=== PATIENT | female | born 2000 | race Caucasian/White ===

== ENCOUNTER 2023-11-13 09:19 | Emergency (ER) | payer OTHER, SELFPAY ==
[2023-11-13 09:50] VITALS: BP 97/66; PULSE 94; RESP 20; TEMP 36.9; O2SAT 98; BMI 20.6
--- NOTE | 2023-11-13 10:07 | EXP.UTC ---
Discharge Plan Referrals Follow up/Referrals: Francine Abad MD [Primary Care Provider] - See instructions Activity Restrictions/Add. Instructions Additional Instructions/Restrictions: *Monitor Temp, Over the counter Motrin or Tylenol as directed/as needed Tylenol every 4 hours and Motrin every 6 hours (as long as your family doctor has told you that you can take it) for fever or pain. and straight to ER if unable to lower temp less than 101.0 after medication given *Warm salt water gargles may help to soothe the throat *Throat Lozenges? *Warm fluids like tea with honey may help to soothe the throat? *Sleep elevated *Humidifier/Vaporizer Follow up IMMEDIATELY for new or worsening symptoms or no Noticeable improvement over the next 48-72 hours. 911 for difficulty breathing or swallowing You were tested for today for COVID19 your test result should be back in the next 24 hours, you may check your results on the [facility] Clinical Impressions Clinical Impression: Viral syndrome Stand Alone Forms Stand Alone Forms: Work/School Release Instructions Patient Instructions: DI for Viral Syndrome, DI for COVID-19 (Suspected or Confirmed ) Print Language Print Language: Tamazight Discharge ED Provider: Kelly Jorge [facility] General Stated complaint: @ home Covid +, cough, fever, vomiting Mode of Arrival: Ambulatory Source of Information: Patient Time Seen by Provider: 11/13/23 10:07 Description of Symptoms (Recalled from Triage Doc. by RN): WANTS COVID TEST. POST COVID AT [facility] HEENT Symptoms (Recalled from RN notes): No Resp Symptoms (Recalled from RN notes): Yes Skin Symptoms (Recalled from RN notes): No MS Symptoms (Recalled from RN notes): No Functional Status (Recalled from RN notes): WNL History of Present Illness Provider Complaint: Patient states that she had a positive home COVID test and her work wanted her to come in and get an official test States that she has been having body aches, chills, nasal congestion and fever Related Data Allergies Allergy/AdvReac Type Severity Reaction Status Date / Time No Known Allergies Allergy Verified 11/13/23 09:52 Worker's Comp Is this a Worker's Comp case?: No [facility] Disclaimer: The information contained in this section may have been updated after the patient was seen, as this information can be updated by other users. Medical History (Updated 11/13/23 @ 10:10 by Kelly Jorge APRN) Depressed Anxiety Social History Smoking Status: Unknown if ever smoked alcohol intake: never current occupational status: employed Travel in the last 8 weeks: None ROS Obtained: Yes All systems reviewed & no additional complaints except as documented and Yes Systems reviewed as appropriate & no additional complaints except as documented Constitutional Constitutional: Reports system reviewed and no additional complaints, except as documented, Reports as per HPI, Reports body ache, Reports chills, Reports fever(s) and Reports headache(s) ENT Ears, Nose, Mouth, and Throat: Reports system reviewed and no additional complaints, except as documented, Reports as per HPI, Reports headache(s), Reports nasal congestion and Reports nasal discharge Cardiovascular Cardiovascular: Reports system reviewed and no additional complaints, except as documented and Reports as per HPI Respiratory Respiratory: Reports system reviewed and no additional complaints, except as documented and Reports as per HPI Gastrointestinal Gastrointestingal: Reports system reviewed and no additional complaints, except as documented and as per HPI Neurologic Neurologic: Reports headache(s) Physical Exam General General appearance: alert and in no apparent distress ENT ENT exam: Present mucous membranes moist Respiratory Respiratory exam: Present normal lung sounds bilaterally; Absent respiratory distress or wheezes Cardiovascular Cardiovascular exam: Present regular rate, normal rhythm and normal heart sounds Abdominal Exam Abdominal exam: Present soft and normal bowel sounds; Absent distention or tenderness Neurological Exam Neurological exam: Present alert, oriented X3 and normal gait Medical Decision Making Medical Records Screening: Per USPSTF and CDC recommendations, given the prevalence of disease in our region, it is our hospital?s policy to screen for HIV and viral Hepatitis for all patients aged 18 and over and those with ongoing risk factors. Dayron Inquiry Pt receiving controlled substance: No Dayron was queried for this patient: No Vital Signs: 11/13/23 09:50 Temperature 98.4 F Temperature Source Oral Pulse Rate [Left Brachial] 94 H Respiratory Rate 20 Blood Pressure [Left Arm] 97/66 L Blood Pressure Mean [Left Arm] 76 02 Sat by Pulse Oximetry 98 Orders (Tests/Meds): ORDERS Category Date Time Status Covid-19 Nasal PCR (H) Routine Lab 11/13/23 09:45 Received
[2023-11-13 10:13] VITALS: BP 97/66; PULSE 94; RESP 20; TEMP 36.9
== END 2023-11-13 10:17 | disposition home or self-care (01) ==
PROVIDERS: Emergency Provider Nurse Practitioner; PCP Family Medicine
DX: U07.1 COVID-19 (principal); R50.9 Fever, unspecified; R09.81 Nasal congestion
CPT/HCPCS: 87635; 99203; 99212; G0463

== ENCOUNTER 2023-11-14 14:17 | Outpatient (CLI) | payer OTHER, SELFPAY ==
[2023-11-14 13:39] LABS: Adenovirus,PCR Not Detected (NotDetected); Bordetella Pertussis Not Detected (NotDetected); Chlamydophila Pneumoniae, PCR Not Detected (NotDetected); Coronavirus 229E Not Detected (NotDetected); Coronavirus NL63 Not Detected (NotDetected); Coronavirus OC43 Not Detected (NotDetected); Coronovirus HKU1,PCR Not Detected (NotDetected); Human Metapneumovirus Not Detected (NotDetected); Influenza A, PCR Not Detected (NotDetected); Influenza AH1, 2009 Not Detected (NotDetected); Influenza AH1, PCR Not Detected (NotDetected); Influenza AH3,PCR Not Detected (NotDetected); Influenza B, PCR Not Detected (NotDetected); Mycoplasma Pneumoniae, PCR Not Detected (NotDetected); Parainfluenza 1, PCR Not Detected (NotDetected); Parainfluenza 2, PCR Not Detected (NotDetected); Parainfluenza 3, PCR Not Detected (NotDetected); Parainfluenza 4, PCR Not Detected (NotDetected); Respiratory Syncytial Virus Not Detected (NotDetected); Rhinovirus/Enterovirus Not Detected (NotDetected)
[2023-11-14 23:45] LABS: Coronavirus 19, PCR Detected (NotDetected)
== END 2023-11-14 23:59 | disposition home or self-care (01) ==
LOC: LAB.DROPOF 14:18
PROVIDERS: PCP Nurse Practitioner Family; Visit Provider Nurse Practitioner Family
DX: R05.9 Cough, unspecified (principal); R07.89 Other chest pain; R06.02 Shortness of breath; R19.7 Diarrhea, unspecified; R11.10 Vomiting, unspecified; R50.9 Fever, unspecified
CPT/HCPCS: 87265; 87486; 87581; 87632; 87635

== ENCOUNTER 2024-01-14 12:18 | Outpatient (CLI) | payer OTHER, SELFPAY ==
[2024-01-14 12:22] LABS: Basophils # 0.1 K/mm3 (0-0.2); Basophils % 0.8 % (0.1-2.0); Eosinophils # 0.4 K/mm3 (0.0-0.4); Eosinophils % 6.1 % (0.1-12.0); Hematocrit 40.5 % (37.0-47.0); Lymphocytes # 2.1 K/mm3 (0.7-4.5); Lymphocytes % 34.6 % (10-50); Mean Corpuscular HGB Conc 34.5 g/dL (31.8-35.4); Mean Corpuscular Hemoglobin 30.8 pg (27.0-31.2); Mean Corpuscular Volume 89.5 fl (81-99); Mean Platelet Volume 7.9 fl (7.4-10.4); Monocytes # 0.3 K/mm3 (0.1-1.0); Monocytes % 4.9 % (1.7-9.3); Neutrophils # 3.3 K/mm3 (1.8-7.8); Neutrophils % 53.6 % (37.0-80.0); Platelet Count 309 K/mm3 (142-424); Red Blood Count 4.53 M/mm3 (4.20-5.40); Red Cell Distribution Width 13.7 % (11.5-17.5); White Blood Count 6.1 K/mm3 (4.8-10.8)
[2024-01-14 12:39] LABS: Alanine Aminotransferase 12 U/L (12-78); Albumin Level 4.4 g/dl (3.5-5.0); Albumin/Globulin Ratio 1.6 (1.1-1.8); Alkaline Phosphatase 83 U/L (38-126); Anion Gap 15.4 mEq/L (5-15); Aspartate Amino Transferase 19 U/L (14-36); Bilirubin,Total 1.2 mg/dl (0.2-1.3); Blood Urea Nitrogen 14 mg/dl (7-17); Calcium 9.2 mg/dl (8.4-10.2); Carbon Dioxide 22 mmol/L (22.0-30.0); Chloride 106 mmol/L (98-107); Estimated Glomerular Filt Rate 102 ml/min (>60); GFR (African American) 123 ML/MIN (>60); Globulin 2.8 g/dL (1.3-3.2); Glucose 70 mg/dl (74-100); Potassium 4.4 mmoL/L (3.5-5.1); Sodium 139 mmol/L (136-145); Total Protein,Serum 7.2 g/dl (6.3-8.2); Uric Acid 3.4 mg/dl (2.5-6.2)
[2024-01-14 12:55] LABS: 25-OH Vitamin D, Total 25.6 ng/mL (30-100)
[2024-01-14 12:56] LABS: T4 (Thyroxine) 13.1 ug/dl (5.53-11.0)
[2024-01-14 12:57] LABS: Free T4 (Free Thyroxine) 1.29 ng/dl (0.78-2.19)
[2024-01-14 13:10] LABS: Thyroid Stimulating Hormone 1.27 uIU/mL (0.465-4.68)
[2024-01-14 13:29] LABS: Vitamin B12 415 pg/mL (239-931)
[2024-01-14 13:55] LABS: Ferritin 23.6 ng/ml (6.24-137)
[2024-01-14 14:42] LABS: Erythrocyte Sedimentation Rate 40 mm/hr (0-20)
[2024-01-15 11:15] LABS: Thyroid Peroxidase Antibodies 91 IU/mL (0-34)
[2024-01-15 12:20] LABS: RA Latex Turbid. <10.0 IU/mL (<14.0)
[2024-01-15 14:13] LABS: Thyroglobulin Level 1.2 IU/mL (0.0-0.9)
[2024-01-22 10:07] LABS: Antinuclear Antibodies, IFA POSITIVE
== END 2024-01-14 23:59 | disposition home or self-care (01) ==
LOC: LAB.DROPOF 12:18
PROVIDERS: PCP Nurse Practitioner Family; Visit Provider Nurse Practitioner Family
DX: R53.83 Other fatigue (principal); R63.0 Anorexia; E55.9 Vitamin D deficiency, unspecified; M79.7 Fibromyalgia; L40.9 Psoriasis, unspecified
CPT/HCPCS: 80050; 80053; 82306; 82607; 82728; 84436; 84439; 84443; 84550; 85025; 85651; 86038; 86376; 86431; 86800

== ENCOUNTER 2024-07-31 07:05 | Outpatient (CLI) | payer OTHER, SELFPAY ==
[2024-07-31 08:12] LABS: HCG,Quantitative 433 mIU/ml (0-5.42)
[2024-08-01 08:16] LABS: Progesterone 16.7 ng/mL (.)
== END 2024-07-31 23:59 | disposition home or self-care (01) ==
LOC: LAB 07:07
PROVIDERS: PCP Nurse Practitioner Family; Visit Provider Obstetrics & Gynecology
DX: Z32.01 Encounter for pregnancy test, result positive (principal)
CPT/HCPCS: 36415; 84144; 84702

== ENCOUNTER 2024-08-06 07:10 | Outpatient (CLI) | payer OTHER, SELFPAY ==
[2024-08-06 08:44] LABS: HCG,Quantitative 6396 mIU/ml (0-5.42)
== END 2024-08-06 23:59 | disposition home or self-care (01) ==
LOC: LAB 07:10
PROVIDERS: PCP Nurse Practitioner Family; Visit Provider Obstetrics & Gynecology
DX: Z34.01 Encounter for supervision of normal first pregnancy, first trimester (principal)
CPT/HCPCS: 36415; 84702

== ENCOUNTER 2024-08-24 16:15 | Outpatient (CLI) | payer OTHER, SELFPAY ==
[2024-08-24 16:44] LABS: Basophils % 0.2 % (0.1-2.0); Eosinophils # 0.1 Kmm3 (0.0-0.4); Hemoglobin 12.3 g/dL (12.2-16.2); Immature Granulocytes # 0.03 10^3uL; Immature Granulocytes % 0.3 %; Lymphocytes # 1.8 K/mm3 (0.7-4.5); Lymphocytes % 18.8 % (10-50); Mean Corpuscular HGB Conc 33.2 g/dL (31.8-35.4); Mean Corpuscular Volume 90.2 fl (81-99); Mean Platelet Volume 9.6 fl (7.4-10.4); Monocytes # 0.5 K/mm3 (0.1-1.0); Monocytes % 5.4 % (1.7-9.3); Neutrophils # 6.9 K/mm3 (1.8-7.8); Neutrophils % 74.3 % (37.0-80.0); Nucleated Red Blood Cells # 0 10^3/uL; Nucleated Red Blood Cells % 0 %; Platelet Count 243 K/mm3 (142-424); Red Cell Distribution Width 11.9 % (11.5-17.5); Red Cell Distribution Width-SD 38.8 fL; White Blood Count 9.3 K/mm3 (4.8-10.8)
[2024-08-24 17:42] LABS: Thyroid Stimulating Hormone 0.22 uIU/mL (0.465-4.68)
[2024-08-24 17:51] LABS: HIV Combo NEGATIVE (Negative)
[2024-08-24 17:57] LABS: Hepatitis C Ab Qual. W/ RFX NEGATIVE (Negative)
[2024-08-25 05:21] LABS: Hepatitis B Surface Antigen Negative (Negative)
[2024-08-25 06:37] LABS: Rubella Antibodies, IgG 3.12 index (Immune >0.99)
[2024-08-25 15:06] LABS: RPR W/RFX Titers Nonreactive (Nonreactive)
== END 2024-08-24 23:59 | disposition home or self-care (01) ==
LOC: LAB 16:16
PROVIDERS: PCP Nurse Practitioner Family; Visit Provider Obstetrics & Gynecology
DX: Z34.01 Encounter for supervision of normal first pregnancy, first trimester (principal)
CPT/HCPCS: 36415; 84443; 85025; 86592; 86762; 86803; 86850; 87340; 87389

== ENCOUNTER 2024-10-05 16:00 | Outpatient (CLI) | payer OTHER, SELFPAY ==
--- OUTSIDE RECORDS SUMMARY | 2024-08-27 14:15 | XMS_ITS | Encounter Summary ---
[facility] [address] [place] [address] Care Team Providers Care Lens Mounter Name Role Phone Francine Abad Primary Care Provider [phone] Reason for Visit * Reason Comments Follow-up On bloodwork Encounter Details Date Type Department Care Team (Late st Contact Info) Description 08/27/2024 2:15 PM EDT Office Visit [facility] [address] [id number] Chetan Pozo MD [address] [id number] Multiple joint pain (Primary Dx); Fibromyalgia; Positive GRICELDA (antinuclear antibody); Psoriasis; Chronic fatigue Social History Tobacco Use Types Packs/Day Years Used Date Smoking Tobacco: Former Cigarettes 0.1 2 2 017 - 2018 Passive Smoke Exposure: Past Smokeless Tobacco: Never Comments:Vape Alcohol Use Standard Drinks/Week Comments Not Currently 2 (1 standard drink = 0.6 oz pur e alcohol) [facility] Utilities Answer Date Recorded In the past 12 months has e electric, gas, oil, or water company threatened to shut off services in your home? No 07/28/2023 AUDIT-C Answer Date Recorded Q1: How often do you have a drink containing alcohol? Never 07/28/2023 Q2: How many drinks containi ng alcohol do you have on a typical day when you are drinking? Patient does not drink Q3: How often do you have si x or more drinks on one occasion? Never 07/28/2023 Overall Financial Resource Strain (CARDIA) Answe r Date Recorded How hard is it for you to pa y for the very basics like food, housing, medical care, and heating? Not hard at all 07/28/2023 PHQ-2 Answer Date Recorded Retired PHQ-9: Brief Depression Severity Measure Score 0 09/28/2022 [facility] - Occupational Stress Questionnaire Answer Date Recorded Do you feel stress - tense, restless, nervous, or anxious, or unable to sleep at night because your mind is troubled all the time - these days? Only a little 07/28/2023 Exercise Vital Sign Answer Date Recorde d On average, how many days pe r week do you engage in moderate to strenuous exercise (like a brisk walk)? 0 days 07/28/2023 On average, how many minutes do you engage in exercise at this level? 0 min 07/28/2023 Hunger Vital Sign Answer Date Recorded Within the past 12 months, y ou worried that your food would run out before you got the money to buy more. Never true 07/28/19 24 Within the past 12 months, t he food you bought just didn't last and you didn't have money to get more. Never true 07/28/2023 PRAPARE - Transportation Answer Date Re corded In the past 12 months, has l ack of transportation kept you from medical appointments or from getting medications? No 03/2023 In the past 12 months, has l ack of transportation kept you from meetings, work, or from getting things needed for daily living? No 07/28/2023 [place] Depression Scale Answer Date Recorded Retired [place] Depression Score 5 09/10/2023 Retired EPD Scale: Thought of Harming Self Unrec ognized value 09/10/2023 Abuse Screen Answer Date Recorded Feels Unsafe at Home or Work/School no 07/28/2023 Feels Threatened by Someone no 03/2023 Does Anyone Try to Keep You From Having Contact with Others or Doing Things Outside Your Home? no 07/28/2023 Physical Signs of Abuse Present no 07/28/2023 Housing Stability Answer Date Recorded Current Living Arrangements home 03/2023 Potentially Unsafe Housing Conditions none 07/28/2023 Family and Community Support Answer Rivera e Recorded If for any reason you need h elp with day-to-day activities such as bathing, preparing meals, shopping, managing finances, etc., do you get the help you need? I don't need any help 07/28/2023 How often do you feel lonely or isolated from those around you? Never 07/28/2023 Employment Answer Date Recorded Do you want help finding or keeping work or a job? I do not need or want help 07/28/2023 Disabilities Answer Date Recorded Difficulty Concentrating, Remembering or Making Decisions no 07/28/2023 Difficulty Managing Errands Independently no 07/28/2023 Education Answer Date Recorded Do you want help with school or training? For example, starting or completing job training or getting a high school diploma, GED or equivalent No 07/28/2023 Preferred Language Iranian 07/28/2023 PHQ-2 Answer Date Recorded Retired PHQ-9: Brief Depression Severity Measure Score 0 07/28/2023 Comments No Sex and Gender Information Value Date Recorded Sex Assigned at Female 11/09/2019 11:08 AM EDT Legal Sex Female 11:24 AM EDT Gender Identity Female 11/09/2019 11:08 AM EDT Sexual Orientation Straight 04/06/2024 8: 44 AM EST documented as of this encounter Last Filed Vital Signs Vital Sign Reading Time Taken Comments Blood Pressure 100/60 08/27/2024 2:10 PM EDT Pulse 99 08/27/2024 2:10 PM EDT Temperature 36.7 C (98 F) 08/27/2024 2:10 PM EDT Respiratory Rate - - Oxygen Saturation - - Inhaled Oxygen Concentration - - Weight 55.5 kg (122 lb 4.8 oz) 08/27/2024 2:10 P M EDT Height 167.6 cm (5' 5.98 ) 08/27/2024 2:10 PM ED T Body Mass Index 19.75 08/27/2024 2:10 PM EDT documented in this encounter Progress Notes * Chetan Pozo MD - 08/27/2024 2:15 PM EDTAssociated Problem(s): Chronic fatigue This is a longstanding problem. * Chtean Pozo MD - 08/27/2024 2:15 PM EDTAssociated Problem(s): Fibromyalgia Diagnosed at age 13. This seems to be an accurate diagnosis. Normal CPK. This can be managed by her primary care provider. * Chetan Pozo MD - 08/27/2024 2:15 PM EDTAssociated Problem(s): Multiple joint pain Onset as a teenager. Associated with diffuse body pain. Joints feel swollen but no visible joint swelling. GRICELDA 1: 160 mid body. CBC normal. History of Reina's thyroiditis per patient. History of fibromyalgia per patient. 04/21 CMP normal. CRP normal. Sed rate very elevated at 115. Complement levels normal. HLA-B27 negative. Double-stranded DNA negative. Rheumatoid factor negative. CCP negative. CK normal. ANTONINO panel negative. X-rays normal. History, laboratory, and exam would not be suspicious for psoriatic arthritis or systemic lupus. GRICELDA positivity could be associated with her thyroid antibodies. X-ray showed no evidence of inflammatory disease. Labs were unremarkable and showed no evidence of chronic inflammation or lupus findings. She was not fit diagnostic criteria for lupus or similar illness. She has no exam evidence of psoriatic arthritis. Her findings would be consistent with fibromyalgia. We reviewed the labs at length. Fibromyalgia can be managed by her primary care provider. We discussed the meaning of a positive GRICELDA, psoriatic arthritis, and fibromyalgia at length. I can see her on an as needed only basis. * Chetan Pozo MD - 08/27/2024 2:15 PM EDTAssociated Problem(s): Positive GRICELDA (antinuclear antibody) 1: 160 mid body. See above. No evidence of associated disease other than Reina's thyroiditis. * Chetan Pozo MD - 08/27/2024 2:15 PM EDTAssociated Problem(s): Psoriasis Primarily on the scalp with mild lesions otherwise. At this time, she does not have evidence of psoriatic arthritis. * Chetan Pozo MD - 08/27/2024 2:15 PM EDT Images from the original note were not included. Office Visit Date: 08/27/2024 Patient Name: Kirstin Carney Date of : 2000 Referring Physician: No ref. provider found Chief Complaint: Abnormal blood work History of Present Illness: Kirstin Carney is a 23 y.o. female who is here today in follow-upfor positive GRICELDA, diffuse pain, and psoriasis. The patient has longstanding pain for well over 10 years. The pain is diffuse throughout her body. She has severe tenderness even with light touch. She was previously diagnosed with fibromyalgia at age 13. She is 8 weeks and feels poorly. She has severe fatigue and morning sickness. Her joints are stable. Still with FMS symptoms. Seeing her inclusion teacher next week. No joint swelling. Her worst areas are her hips, knees, and hands. There is no description of fusiform swelling. She has no history of dactylitis or symptoms of enthesitis. She feels stiff all over . She has 1 hour of morning stiffness. Pain does not keep her awake at night. Her activities of dailyliving are fairly good. Sleep is very poor. Her energy is poor. She has frequent headaches. She is troubled with anxiety and depression. She has no specific bowel complaints. She has longstanding scalp psoriasis. Stable. She was also found to have positive TPO antibodies and she has been told that she has Reina's thyroiditis. She has no history of alopecia. She has no history of malar rash. She has no history of photosensitivity. She has had no oral or nasal ulcers. There is no history consistent with Raynaud's phenomenon. She has had no unexplained fevers. There is no history of serositis. She has no history of blood clots, seizures, or miscarriages. She has had no renal or hematologic abnormalities. She does have a family history of Reina's disease and her mother. She was on Cymbalta in the past for fibromyalgia. She thinks this was effective. She is currently on Zoloft. Subjective Review of Systems: Review of Systems Constitutional: Positive for appetite change, fatigue and unexpected weight loss. HENT: Positive for trouble swallowing. Cardiovascular: Positive for palpitations. Gastrointestinal: Positive for nausea. Genitourinary: Positive for decreased libido. Musculoskeletal: Positive for arthralgias, back pain, gait problem, joint swelling and myalgias. Skin: Positive for bruise. Allergic/Immunologic: Positive for environmental allergies. Neurological: Positive for tremors and headache. Hematological: Bruises/bleeds easily. Psychiatric/Behavioral: Positive for decreased concentration. The patient is nervous/anxious. Past Medical History: Past Medical History: Diagnosis Date ADHD (attention deficit hyperactivity disorder) 2021 Anemia Anxiety and depression 2014 Fibromyalgia 2017 Better by 2018 Headache Nightmares 2014 Better with treatment of depression Psoriasis of scalp 2004 Syphilis 2019 Vitamin D deficiency 12/2023 Past Surgical History: Past Surgical History: Procedure Laterality Date ADENOIDECTOMY 2006 CHOLECYSTECTOMY Dec 2016 CHOLECYSTECTOMY WITH INTRAOPERATIVE CHOLANGIOGRAM N/A 01/23/2016 Procedure: CHOLECYSTECTOMY LAPAROSCOPIC INTRAOPERATIVE CHOLANGIOGRAM; Surgeon: Shay Carlton MD; Location: [facility] OR; Service: FACIAL RECONSTRUCTION SURGERY 2001 Related to dog bite FACIAL RECONSTRUCTION SURGERY 2002 Related to shattered glass LIPOMA EXCISION 2020 From back TONSILLECTOMY AND ADENOIDECTOMY 2006 WISDOM TOOTH EXTRACTION 2016 Family History: Family History Problem Relation Age of Onset Other (pre diabetes) Mother Arthritis Mother Reina's thyroiditis Mother Thyroid disease Mother Hypertension Father Gout Father Other (pre diabetes) Father Reina's thyroiditis Sister Asthma Sister Thyroid disease Maternal Grandmother Thyroid disease Sister Social History: Social History Socioeconomic History Marital status: Spouse name: malika Tobacco Use Smoking status: Former Current packs/day: 0.00 Average packs/day: 0.1 packs/day for 2.0 years (0.2 ttl pk-yrs) Types: Cigarettes Start date: 2016 Quit date: 2018 Years since quittin.5 Passive exposure: Past Smokeless tobacco: Never Tobacco comments: Vape Vaping Use Vaping status: Former Substances: Nicotine Devices: Disposable, Pre-filled or refillable cartridge, Pre-filled pod Substance and Sexual Activity Alcohol use: Not Currently Alcohol/week: 2.0 standard drinks of alcohol Types: 1 Glasses of wine, 1 Cans of beer per week Drug use: No Sexual activity: Defer Partners: Male Medications: Current Outpatient Medications: ondansetron ODT (ZOFRAN-ODT) 4 MG disintegrating tablet, DISSOLVE ONE TABLET UNDER THE TONGUE EVERY6 HOURS, Disp: , Rfl: promethazine (PHENERGAN) 12.5 MG tablet, Take 1 tablet by mouth Every 6 (Six) Hours As Needed for Nausea or Vomiting., Disp: , Rfl: etonogestrel-ethinyl estradiol (NuvaRing) 0.12-0.015 MG/24HR vaginal ring, Insert 1 each into the vagina Every 28 (Twenty-Eight) Days. Insert vaginally and leave in place for 3 consecutive weeks, then remove for 1 week., Disp: 3 each, Rfl: 4 sertraline (ZOLOFT) 25 MG tablet, Take 1 tablet by mouth Daily., Disp: , Rfl: triamcinolone (KENALOG) 0.1 % cream, APPLY TOPICALLY TO AFFECTED AREA THREE TIMES DAILY FOR 14 DAYS, Disp: , Rfl: Allergies: No Known Allergies I have reviewed and updated the patient's chief complaint, history of present illness, review of systems, past medical history, surgical history, family history, social history, medications and allergy list as appropriate. Objective Vital Signs: Vitals: 08/27/24 1410 BP: 100/60 BP Location: Right arm Patient Position: Sitting Cuff Size: Adult Pulse: 99 Temp: 98 ??F (36.7 ??C) TempSrc: Temporal Weight: 55.5 kg (122 lb 4.8 oz) Height: 167.6 cm (65.98 ) PainSc: 3 PainLoc: Knee Body mass index is 19.75 kg/m??. Physical Exam: General: The patient is well-developed and well nourished. Cooperative, alert and oriented x3. Affect is normal. Hydration appears normal. HEENT: Normocephalic and atraumatic. No notable alopecia. Lids and conjunctiva are normal. Pupils are equal and sclera are clear. Oropharynx is clear NECK: Supple without adenopathy, masses or thyromegaly. CARDIOVASCULAR: Regular rate and rhythm. No murmurs, rubs or gallops LUNGS: Effort is normal. Lungs are clear bilaterally. ABDOMEN: Soft and non-tender without masses or hepatosplenomegaly.. EXTREMITIES: No edema. No cyanosis or clubbing. SKIN: There is scalp psoriasis. Multiple acneiform lesions are present on the face. I see no nail pits. There are no nodules. No other rashes are present. NEUROLOGIC: Gait is normal. MUSCULOSKELETAL: Complete joint exam was performed. There was full range of motion of the shoulders, elbows, wrists and hands without soft tissue swelling synovitis or deformities except as noted. Hips have good flexion and internal and external rotation. Knees have no palpable effusions. There is full extension and flexion. Ankles have no soft tissue swelling or synovitis. BACK: Straight without scoliosis. 1718 classic fibromyalgia tender points are present. Assessment / Plan Assessment & Plan Multiple joint pain Onset as a teenager. Associated with diffuse body pain. Joints feel swollen but no visible joint swelling. GRICELDA 1: 160 mid body. CBC normal. History of Reina's thyroiditis per patient. History of fibromyalgia per patient. 04/21 CMP normal. CRP normal. Sed rate very elevated at 115. Complement levels normal. HLA-B27 negative. Double-stranded DNA negative. Rheumatoid factor negative. CCP negative. CK normal. ANTONINO panel negative. X-rays normal. History, laboratory, and exam would not be suspicious for psoriatic arthritis or systemic lupus. GRICELDA positivity could be associated with her thyroid antibodies. X-ray showed no evidence of inflammatory disease. Labs were unremarkable and showed no evidence of chronic inflammation or lupus findings. She was not fit diagnostic criteria for lupus or similar illness. She has no exam evidence of psoriatic arthritis. Her findings would be consistent with fibromyalgia. We reviewed the labs at length. Fibromyalgia can be managed by her primary care provider. We discussed the meaning of a positive GRICELDA, psoriatic arthritis, and fibromyalgia at length. I can see her on an as needed only basis. Fibromyalgia Diagnosed at age 13. This seems to be an accurate diagnosis. Normal CPK. This can be managed by her primary care provider. Positive GRICELDA (antinuclear antibody) 1: 160 mid body. See above. No evidence of associated disease other than Reina's thyroiditis. Psoriasis Primarily on the scalp with mild lesions otherwise. At this time, she does not have evidence of psoriatic arthritis. Chronic fatigue This is a longstanding problem. Follow Up: Return if symptoms worsen or fail to improve. Chetan Pozo MD [facility] [place] * Chetan Pozo MD - 08/24/2024 12:47 PM EDTAssociated Problem(s): Iron deficiency anemia Likely due to prior . Rechecking today for improvement. documented in this encounter Plan of Treatment Not on file documented as of this encounter Visit Diagnoses Diagnosis Multiple joint pain- Primary Pain in joint, multiple sites Fibromyalgia Unspecified myalgia and myositis Positive GRICELDA (antinuclear antibody) Other and unspecified nonspecific immunological findings Psoriasis Other psoriasis Chronic fatigue Other malaise and fatigue documented in this encounter Care Teams Lens Mounter Relationship Specialty Start Date End Date Francine Abad DO [address] [place] [address] PCP - General Family Medicine 03/08/17 documented as of this encounter
--- OUTSIDE RECORDS SUMMARY | 2024-08-31 11:00 | XMS_ITS | Encounter Summary ---
[facility] [address] [place] [address] Care Team Providers Care Pharmacy District Manager Name Role Phone Francine Abad Primary Care Provider [phone] Reason for Visit * Reason Comments Thyroid Problem Pt is 8 weeks pregna nt Encounter Details Date Type Department Care Team (Late st Contact Info) Description 08/31/2024 11:00 AM EDT Office Visit [facility] ENDOCRINOLOGY [address] [place] [phone] Kelly Vidal PA-C [address] [place], [place] [id number] Thyroid disease during in first trimester (Primary Dx); Anti-TPO antibodies present Social History Tobacco Use Types Packs/Day Years Used Date Smoking Tobacco: Former Cigarettes 0.1 2 2 017 - 2019 Passive Smoke Exposure: Past Smokeless Tobacco: Never Comments:Vape Alcohol Use Standard Drinks/Week Comments Not Currently 2 (1 standard drink = 0.6 oz pur e alcohol) [facility] Utilities Answer Date Recorded In the [...] Brief Depression Severity Measure Score 0 09/28/2022 [facility] - Occupational Stress Questionnaire Answer Date [...] things needed for daily living? No 07/28/2023 [place] Depression Scale Answer Date Recorded Retired [place] Depression Score 5 09/10/2023 Retired EPD Scale: [...] GED or equivalent No 07/28/2023 Preferred Language Japanese 07/28/2023 PHQ-2 Answer Date Recorded Retired PHQ-9: [...] Reading Time Taken Comments Blood Pressure 100/60 08/31/2024 11:08 AM EDT Pulse 98 08/31/2024 11:08 AM EDT Temperature - - Respiratory Rate - - Oxygen Saturation - - Inhaled Oxygen Concentration - - Weight 56.7 kg (125 lb) 08/31/2024 11:08 AM EDT Height 167.6 cm (5' 5.98 ) 08/31/2024 11:08 AM E DT Body Mass Index 20.19 08/31/2024 11:08 AM EDT documented in this encounter Progress Notes * Kelly Vidal PA-C - 09/01/2024 6:16 AM EDTAssociated Problem(s): Thyroid disease during in first trimester Hx positive TPO antibodies with normal thyroid function tests in past. Recent mild low TSH 0.22; within normal reference range for . Discussed low TSH common due to hcg in first trimester Ddx: gestational transient thyrotoxicosis, autoimmune hyperthyroidism/Grave's disease. Advised repeat labs with TSH, FT4, thyrotropin receptor ab; plans to repeat next week. Discussed risk for development of thyroid disease given hx positive TPO antibodies and continue monitoring TSH in each trimester/4-6 weeks. Discussed propranolol may help with symptomatic relief; declines medication management at this time. Would avoid PTU use for now given low-normal TSH and if FT4 at or slightly above normal. Encouraged hydration, electrolyte replacement, vitamin containing folic acid/iron. * Kelly Vidal PA-C - 08/31/2024 11:00 AM EDT Chief Complaint Patient presents with Thyroid Problem Pt is 8 weeks HPI Kirstin Carney is a 23 y.o. female presents today for evaluation of positive TPO antibodies. They were last seen for this 03/2024. Currently 9 weeks . Had recent TSH done 08/24 at [facility] and TSH slightly low. Taking trisha . Drinking water 40 oz 2-3 times per day. Admits nausea, vomiting, epigastric 2x/day; started phenergan and zofran per OBGYN. Denies constipation, diarrhea. Admits worsening fatigue. Admits heat intolerance with going outside. Admits intermittent palpitations. Hx occasional skipping beat; Holter monitor 6 years ago; did not follow-up. Admits stiffening joints. Continued psoriasis/rash since prior . Has noted on body and scalp. Admits occasional sensation Admits difficulty swallowing at times. Denies neck pain, hoarseness. Denies GODFREY, vision changes, swelling. Denies chest pain. Denies numbness/tingling. Following additionally with rheumatology. Biopsy 8-9 years ago for reflux. Diagnosed with gallstones and s/p cholecystectomy. Supplements: Taking vitamin, vitamin D Denies taking additional biotin supplement. 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 Reports chronic symptoms started few years ago with worsening after 07/2023. - Admits family history of thyroid disease: mother, sister, m grandmother Labs from 08/24/2024 TSH: 0.22 done at [facility] 04/13/2024 TSH: 1.8, FT4: 1.39, total T3: 180, vitamin D: 38.3 12/2023 TSH: 1.27, T4: 13.1 (H), TPO antibody: 91, vitamin D: 25 - Denies thyroid imaging. - Denies hx of radiation to head/neck. - Denies high iodine diet. The following portions of the patient's history were reviewed and updated as appropriate: allergies, current medications, past family history, past medical history, past social history, past surgicalhistory and problem list. Past Medical History: Diagnosis Date ADHD (attention deficit hyperactivity disorder) 2021 Anemia Anxiety and depression 2014 Fibromyalgia 2017 Better by 2018 Headache Nightmares 2015 Better with treatment of depression Psoriasis of scalp 2004 Syphilis 2019 Vitamin D deficiency 12/2023 Past Surgical History: Procedure Laterality Date ADENOIDECTOMY 2005 CHOLECYSTECTOMY Dec 2016 CHOLECYSTECTOMY WITH INTRAOPERATIVE CHOLANGIOGRAM N/A 01/23/2016 Procedure: CHOLECYSTECTOMY LAPAROSCOPIC INTRAOPERATIVE CHOLANGIOGRAM; Surgeon: Shay Carlton MD; Location: [facility] OR; Service: FACIAL RECONSTRUCTION SURGERY 2001 Related to dog bite FACIAL RECONSTRUCTION SURGERY 2002 Related to shattered glass LIPOMA EXCISION 2020 From back TONSILLECTOMY AND ADENOIDECTOMY 2006 WISDOM TOOTH EXTRACTION 2017 Family History Problem Relation Age of Onset Other (pre diabetes) Mother Arthritis Mother Reina's thyroiditis Mother Thyroid disease Mother Hypertension Father Gout Father Other (pre diabetes) Father Reina's thyroiditis Sister Asthma Sister Thyroid disease Maternal Grandmother Thyroid disease Sister Social History Socioeconomic History Marital status: Spouse name: malika Tobacco Use Smoking status: Former Current packs/day: 0.00 Average packs/day: 0.1 packs/day for 2.0 years (0.2 ttl pk-yrs) Types: Cigarettes Start date: 2016 Quit date: 2019 Years since quittin.5 Passive exposure: Past Smokeless tobacco: Never Tobacco comments: Vape Vaping Use Vaping status: Former Substances: Nicotine Devices: Disposable, Pre-filled or refillable cartridge, Pre-filled pod Substance and Sexual Activity Alcohol use: Not Currently Alcohol/week: 2.0 standard drinks of alcohol Types: 1 Glasses of wine, 1 Cans of beer per week Drug use: No Sexual activity: Defer Partners: Male No Known Allergies Current Outpatient Medications on File Prior to Visit Medication Sig Dispense Refill ondansetron ODT (ZOFRAN-ODT) 4 MG disintegrating tablet DISSOLVE ONE TABLET UNDER THE TONGUE EVERY 6 HOURS GUMMY VITAMIN Chew 1 each Daily. promethazine (PHENERGAN) 12.5 MG tablet Take 1 tablet by mouth Every 6 (Six) Hours As Needed for Nausea or Vomiting. [DISCONTINUED] etonogestrel-ethinyl estradiol (NuvaRing) 0.12-0.015 MG/24HR vaginal ring Insert 1 each into the vagina Every 28 (Twenty-Eight) Days. Insert vaginally and leave in place for 3 consecutive weeks, then remove for 1 week. 3 each 4 [DISCONTINUED] sertraline (ZOLOFT) 25 MG tablet Take 1 tablet by mouth Daily. [DISCONTINUED] triamcinolone (KENALOG) 0.1 % cream APPLY TOPICALLY TO AFFECTED AREA THREE TIMES DAILY FOR 14 DAYS No current facility-administered medications on file prior to visit. Review of Systems Constitutional: Positive for activity change, appetite change and fatigue. Negative for unexpected weight gain and unexpected weight loss. HENT: Positive for trouble swallowing. Negative for voice change. Respiratory: Negative for shortness of breath. Cardiovascular: Positive for palpitations. Negative for chest pain and leg swelling. Gastrointestinal: Positive for nausea and vomiting. Negative for constipation and diarrhea. Endocrine: Positive for heat intolerance. Negative for cold intolerance. Musculoskeletal: Positive for arthralgias. Skin: Positive for rash. Negative for dry skin. Neurological: Negative for dizziness, tremors, numbness and headache. Psychiatric/Behavioral: Negative for depressed mood. The patient is not nervous/anxious. BP 100/60 Pulse 98 Ht 167.6 cm (65.98 ) Wt 56.7 kg (125 lb) BMI 20.19 kg/m?? Physical Exam Constitutional: Appearance: Normal appearance. Neck: Thyroid: No thyroid mass, thyromegaly or thyroid tenderness. Cardiovascular: Rate and Rhythm: Normal rate and regular rhythm. Pulmonary: Effort: Pulmonary effort is normal. Musculoskeletal: General: Normal range of motion. Skin: General: Skin is warm and dry. Neurological: General: No focal deficit present. Mental Status: She is alert and oriented to person, place, and time. Psychiatric: Mood and Affect: Mood normal. Behavior: Behavior normal. LABS AND IMAGING CMP Lab Results Component Value Date GLUCOSE 92 04/21/2024 BUN 8 04/21/2024 CREATININE 0.70 04/21/2024 EGFR 123.3 04/21/2024 BCR 11.4 04/21/2024 K 4.1 04/21/2024 CO2 24.0 04/21/2024 CALCIUM 9.2 04/21/2024 ALBUMIN 4.1 04/21/2024 AST 21 04/21/2024 ALT 18 04/21/2024 CBC w/DIFF Lab Results Component Value Date WBC 8.19 04/13/2024 RBC 4.37 04/13/2024 HGB 13.5 04/13/2024 HCT 39.9 04/13/2024 MCV 91.3 04/13/2024 MCH 30.9 04/13/2024 MCHC 33.8 04/13/2024 RDW 12.0 (L) 04/13/2024 RDWSD 39.9 04/13/2024 MPV 10.1 04/13/2024 PLT 289 04/13/2024 NEUTRORELPCT 78.7 (H) 07/30/2023 LYMPHORELPCT 13.4 (L) 07/30/2023 MONORELPCT 6.7 07/30/2023 EOSRELPCT 0.5 07/30/2023 BASORELPCT 0.3 07/30/2023 AUTOIGPER 0.4 07/30/2023 NEUTROABS 14.61 (H) 07/30/2023 LYMPHSABS 2.49 07/30/2023 MONOSABS 1.25 (H) 07/30/2023 EOSABS 0.09 07/30/2023 BASOSABS 0.05 07/30/2023 AUTOIGNUM 0.08 (H) 07/30/2023 NRBC 0.0 07/30/2023 TSH Lab Results Component Value Date TSH 1.820 04/13/2024 TSH 1.000 09/28/2022 TSH 1.780 08/17/2021 T4 Lab Results Component Value Date FREET4 1.39 04/13/2024 FREET4 1.63 09/28/2022 No results found for: W4CTEUH T3 No results found for: T3FREE Lab Results Component Value Date N8TRFEN 180.0 04/13/2024 TRAb No results found for: TSURCPAB TPO No results found for: THYROIDAB No valid procedures specified. Assessment and Plan Diagnoses and all orders for this visit: 1. Thyroid disease during in first trimester (Primary) Assessment & Plan: Hx positive TPO antibodies with normal thyroid function tests in past. Recent mild low TSH 0.22; within normal reference range for . Discussed low TSH common due to hcg in first trimester Ddx: gestational transient thyrotoxicosis, autoimmune hyperthyroidism/Grave's disease. Advised repeat labs with TSH, FT4, thyrotropin receptor ab; plans to repeat next week. Discussed risk for development of thyroid disease given hx positive TPO antibodies and continue monitoring TSH in each trimester/4-6 weeks. Discussed propranolol may help with symptomatic relief; declines medication management at this time. Would avoid PTU use for now given low-normal TSH and if FT4 at or slightly above normal. Encouraged hydration, electrolyte replacement, vitamin containing folic acid/iron. Orders: - T4, Free; Future - TSH; Future - Thyrotropin Receptor Antibody; Future 2. Anti-TPO antibodies present Return in about 4 weeks (around 09/28/2024) for follow-up thyroid disease in . The patient was instructed to contact the clinic with any interval questions or concerns. Electronically signed by: Kelly Vidal PA-C Endocrinology Please note that portions of this note were completed with a voice recognition program. documented in this encounter Plan of Treatment Scheduled Orders Name Type Priority Associated Diagnoses Orde r Schedule T4, Free Lab Routine Thyroid disease during in first trimester Expected: 10/09/2024 (Approximate), Expires: 12/01/2025 TSH Lab Routine Thyroid disease during in first trimester Expected: 10/09/2024 (Approximate), Expires: 12/01/2025 Thyrotropin Receptor Antibody Lab Routine Thyroid disease during in first trimester Expected: 10/09/2024 (Approximate), Expires: 12/01/2025 documented as of this encounter Visit Diagnoses Diagnosis Thyroid disease during in first trimester- Primary Anti-TPO antibodies present documented in this encounter Care Teams Pharmacy District Manager Relationship Specialty Start Date End Date Francine Abad DO [address] [place], [place] [phone] PCP - General Family Medicine 03/08/17 documented as of this encounter
--- OUTSIDE RECORDS SUMMARY | 2024-10-06 13:59 | XMS_ITS | Clinical Summary ---
Author Organization [facility] Address [address] [place] [address] Care Team Providers Care Chief Risk Officer Name Role Phone PolloFrancine lovell Adina YE Primary Care Provider Allergies No known active allergies Medications * This document contains information received from the source organization and may not represent a complete record from that organization. ondansetron ODT (ZOFRAN-ODT) 4 MG disintegrating tablet DISSOLVE ONE TABLET UNDER THE TONGUE EVERY 6 HOURS 5 Active promethazine (PHENERGAN) 12.5 MG tablet Take 1 tablet by mouth Every 6 (Six) Hours As Needed for Nausea or Vomiting. 5 Active GUMMY VITAMIN Chew 1 each Daily. Active Active Problems Problem Noted Date Diagnosed Date Thyroid disease during in [facility] 08/31/2024 Assessment & Plan (09/01/2024 6:16 AM EDT): Hx positive TPO antibodies with normal thyroid [...] hydration, electrolyte replacement, vitamin containing folic acid/iron. Multiple joint pain 04/21/2024 Assessment & Plan (08/27/2024 2:40 PM EDT): Onset as a teenager. Associated with diffuse [...] her on an as needed only basis. Assessment & Plan (04/21/2024 10:51 AM EST): Onset as a teenager. Associated with diffuse body pain. Joints feel swollen but no visible joint swelling. GRICELDA 1: 160 mid body. CBC normal. History of Reina's thyroiditis per patient. History of fibromyalgia per patient. History and exam would not be suspicious for psoriatic arthritis or systemic lupus. GRICELDA positivity could be associated with her thyroid antibodies. I will obtain x-rays of the hands to look for psoriatic changes, inflammatory labs, ANTONINO panel, Crithidia double-stranded DNA, and complement levels. I told her I have a low suspicion for lupus or similar illness. I told her I see no exam evidence of psoriatic arthritis. Her findings would be consistent with fibromyalgia. We discussed the meaning of a positive GRICELDA, psoriatic arthritis, and fibromyalgia at length. I will see her in follow-up in 6 weeks. If she has no evidence of inflammatory illness, her fibromyalgia can be managed by her primary care provider. Orders: Rheumatoid Factor; Future Cyclic Citrul Peptide Antibody, IgG / IgA; Future HLA-B27 Antigen; Future XR Hand 2 View Bilateral Fibromyalgia 04/21/2024 Assessment & Plan (08/27/2024 2:40 PM EDT): Diagnosed at age 13. This seems to be an accurate diagnosis. Normal CPK. This can be managed by her primary care provider. Assessment & Plan (04/21/2024 10:51 AM EST): Diagnosed at age 13. This seems to be an accurate diagnosis. I will obtain CPK. Orders: CK; Future Psoriasis 04/21/2024 Assessment & Plan (08/27/2024 2:40 PM EDT): Primarily on the scalp with mild lesions otherwise. At this time, she does not have evidence of psoriatic arthritis. Assessment & Plan (04/21/2024 10:51 AM EST): Primarily on the scalp with mild lesions otherwise. At this time I do not see evidence of psoriatic arthritis. Positive GRICELDA (antinuclear antibody) 04/21/2024 Assessment & Plan (08/27/2024 2:40 PM EDT): 1: 160 mid body. See above. No evidence of associated disease other than Reina's thyroiditis. Assessment & Plan (04/21/2024 10:51 AM EST): 1: 160 mid body. See above. Orders: Comprehensive Metabolic Panel; Future C-reactive Protein; Future Urinalysis With Culture If Indicated -; Future Sedimentation Rate; Future GRICELDA by IFA, Reflex 9-biomarkers profile; Future C4+C3; Future dsDNA Antibody by IFA, Fernanda lucsima, with Reflex to Titer; Future Chronic fatigue 04/21/2024 Assessment & Plan (08/27/2024 2:40 PM EDT): This is a longstanding problem. Assessment & Plan (04/21/2024 10:51 AM EST): This is a longstanding problem. 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 Discussed positive TPO antibodies can increase risk for developing thyroid disease over time. Discussed treatment as needed based on thyroid hormone levels. Repeat TFT. Discussed potential illness, allergies, stress can influence thyroid antibody levels/disease progression. Discussed risk for complications with discontinuing medication/uncontrolled thyroid levels. Discussed potential benefit lowering TPO ab activity with dietary selenium (meat, eggs, nuts- 1 brazil nut/day) Discussed need for increase medication dose usually 2 doses per week if /planning with goal TSH: 1-2.5 if started on medication. Iron deficiency anemia 04/13/2024 Assessment & Plan (08/24/2024 12:47 PM EDT): Likely due to prior . Rechecking today for improvement. Assessment & Plan (04/13/2024 12:39 PM EST): Likely due to prior . Rechecking today for improvement. exam 09/10/2023 Vapes nicotine containing substance 12/11/2022 Overview (01/08/2023): 01/08/2023 reports 0% nicotine product now Assessment & Plan (04/21/2024 10:51 AM EST): She is not interested in smoking cessation at this time. ADHD (attention deficit hype ractivity disorder), inattentive type 10/05/2021 Vitamin D deficiency 03/10/2017 Assessment & Plan (04/13/2024 12:38 PM EST): Repeating after starting vitamin D supplement. 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 03/08/2017 07/28/2023 Bone pain 03/08/2017 07/28/2023 Psoriasis of scalp 03/08/2017 Encounters Date Type Department Care Team Description 08/31/2024 11:00 AM EDT Office Visit [facility] [address] [address] Kelly Vidal PA-C Thyroid disease during in first trimester (Primary Dx); Anti-TPO antibodies present 08/31/2024 Travel 08/27/2024 2:15 PM EDT Office Visit [facility] [address] [address] Chetan Pozo MD Multiple joint pain (Primary Dx); Fibromyalgia; Positive GRICELDA (antinuclear antibody); Psoriasis; Chronic fatigue 08/27/2024 Travel from Last 3 Months Immunizations Immunization Administration Dates Next Due COVID-19 (MODERNA) 1st,2nd,3 rd Dose Monovalent 07/08/2020,06/10/2020 DTaP 09/01/2003, 1,03/31/1999,01/18,1998 Hepatitis A 09/07/2015,09/20/1999 Hepatitis B Adult/Adolescent IM 03/31/1999,01/18,1998 HiB 03/28/2000, 0,01/18/1999,11/18 IPV 09/01/2003, 0,01/18/1999,11/18 MMR 09/01/2003,02/16/2000 Meningococcal Conjugate 09/07/2015,09/19/2009 PPD Test 10/08/2016 Pneumococcal Conjugate 13-Va lent (PCV13) 06/15/1999 Tdap 05/16/2023,10/08/2016 Family History Medical History Relation Name Comments Gout Father Arden Hypertension Father Arden pre diabetes Father Arden Thyroid disease Maternal Grandmother Melanie Arthritis Mother Ara Reina's thyroiditis Mother Ara Thyroid disease Mother Ara pre diabetes Mother Ara Asthma Sister 1 Reina's thyroiditis Sister 1 Thyroid disease Sister 2 Suzanna Relation Name Status Comments Father Arden Alive Maternal Grandmother Melanie Alive Mother Ara Alive Sister 1 Sister 2 Suzanna Alive Social History Tobacco Use Types Packs/Day Years Used Date Smoking Tobacco: Former Cigarettes 0.1 2 2 017 - 2018 Passive Smoke Exposure: Past Smokeless Tobacco: Never Tobacco Cessation:Counseling Given: Not Answered Comments:Vape Alcohol Use Standard Drinks/Week Comments Not Currently 2 (1 standard drink = 0.6 oz pur e alcohol) [employer] Utilities Answer Date Recorded In the past 12 months has [employer], gas, oil, or water [employer] threatened to shut off services in your [...] Brief Depression Severity Measure Score 0 09/28/2022 [facility] [place] of Occupat ional Health - Occupational Stress [...] things needed for daily living? No 07/28/2023 [place] Depression Scale Answer Date Recorded Retired [place] Depression Score 5 09/10/2023 Retired EPD Scale: [...] GED or equivalent No 07/28/2023 Preferred Language Mohawk 07/28/2023 PHQ-2 Answer Date Recorded Retired PHQ-9: Brief Depression Severity Measure Score 0 07/28/2023 Comments No Sex and Gender Information Value Date Recorded Sex Assigned at Female 11/09/2019 11:08 AM EDT Legal Sex Female 11:24 AM EDT Gender Identity Female 11/09/2019 11:08 AM EDT Sexual Orientation Straight 04/06/2024 8: 44 AM EST Last Filed Vital Signs Vital Sign Reading Time Taken Comments Blood Pressure 100/60 08/31/2024 11:08 AM EDT Pulse 98 08/31/2024 11:08 AM EDT Temperature 36.7 C (98 F) 08/27/2024 2:10 PM EDT Respiratory Rate 16 08/20/2023 9:09 AM EDT Oxygen Saturation 100% 12/14/2022 9:57 AM EDT Inhaled Oxygen Concentration - - Weight 56.7 kg (125 lb) 08/31/2024 11:08 AM EDT Height 167.6 cm (5' 5.98 ) 08/31/2024 11:08 AM E DT Body Mass Index 20.19 08/31/2024 11:08 AM EDT Plan of Treatment Health Maintenance Due Date Last Done Comments HPV VACCINES (1 - 3-dose series) 2013 Annual Gynecologic Pelvic and Breast Exam 11/13/2020 11/13/2019 ANNUAL PHYSICAL 09/29/2023 09/28/2022, 07/13/2021 COVID-19 Vaccine ( - season) 2023 07/08/2020, 06/10/2020 INFLUENZA VACCINE 11/25/2024 03/08/2017 (Declined) PAP SMEAR 09/28/2025 09/28/2022, 09/28/2022, 11/13/2019 TDAP/TD VACCINES (3 - Td or Tdap) 05/15/2033 05/16/2023, 10/08/2016 Pneumococcal Vaccine 0-49 Aged Out 06/15/1999 No longer eligible based on patient's age to complete this topic CHLAMYDIA SCREENING Discontinued 12/11/2022, 04/24/2021, 06/05/2018 HEPATITIS C SCREENING Completed 12/11/2022 , 04/24/2021 Procedures Procedure Name Priority Date/Time Associated Diagnosis Comments HEPATITIS C ANTIBODY Routine 12/11/2022 3:32 PM EDT Supervision of normal first , antepartum KIMMY ALBICANS, GARDNERELLA VAGINALIS, TRICHOMONAS VAGINALIS,DNA Routine 12/11/2022 Supervision of normal first , antepartum LIQUID-BASED PAP SMEAR, [facility] (VIRY,COR,MAD) Routine 09/28/2022 11:02 AM EDT Pap smear for cervical cancer screening SCANNED - PAP SMEAR 11/13/2019 from Last 3 Months or Most Recently Relevant to Health Maintenance Results * Hepatitis C Antibody (12/11/2022 3:32 PM EDT) Hepatitis C Ab Non-Reacti ve Non-Reacti ve 12/12/2022 1:03 AM EDT [facility] Blood Venipuncture / Unknown 12/11/2022 3:32 PM EDT 12/11/2022 3:37 PM EDT Narrative [facility] - 12/12/2022 1:03 AM EDT Results may be falsely decreased if patient taking Biotin. Shiva Soares MD LAB BLOOD ORDERABLES Final Result [facility]
[address] [place] [address], * Gardnerella vaginalis, Trichomonas vaginalis, Kimmy albicans, DNA - Swab, Vagina (12/11/2022) Swab Vaginal structure / Unknown Shiva Soares MD MICROBIOLOGY - GENERAL [facility] Final Result [facility] [place] [address] * LIQUID-BASED PAP SMEAR, [facility]VIRY[facility]) (09/28/2022 11:02 AM EDT) Reference Lab Report [facility] [address] [place] [address] or [phone] Ag Piña M.D., Pellet Mill Operator PATIENT NAME [facility]ATORY NO. [place] ALBA [id number] AGE SEX SSN CLIENT REF # [facility] OF 2000 F [id number] [facility] REQUESTING Lenard ATTENDING M.D. COPY TO. Shaina RADHA [address], [place] [address] DATE COLLECTED DATE RECEIVED DATE REPORTED 09/28/2022 09/28/2022 10/01/2022 ThinPrep Pap with Cytyc Imaging DIAGNOSIS: Negative for intraepithelial lesion or malignancy Multiple factors can influence accuracy of Pap tests; therefore, screening at regular intervals is necessary for early cancer detection. COMMENT: Benign cellular changes associated with inflammation are present. SPECIMEN ADEQUACY: SATISFACTORY FOR EVALUATION Transformation zone is present. SOURCE OF SPECIMEN: CERVICAL/ENDOCERV ICAL SLIDES: 1 CLINICAL HISTORY: Pap smear for cervical cancer screening HPV HR-HPV POOL: Negative The Aptima HPV assay is an in vitro nucleic acid amplification test for the qualitative detection of E6/E7 viral messenger RNA from 14 high risk types of HPV in cervical specimens. The high risk HPV types detected include: 16, 18, 31, 33, 35, 39, 45, 51, 52, 56, 58, 59, 66, 68 APPRISE COUNSELOR: RUIZ JETER (ASCP) CPT CODES: 20477, [id number] 10/01/2022 2:06 PM EDT [facility] ThinPrep Vial Cervix uteri structure / Unknown Collection / Unknown 09/28/2022 11:02 AM EDT 09/28/2022 11:02 AM EDT Francine Abad DO PATHOLOGY/CYTOLOGY ORDERABL ES Final Result [facility]
[address] [place] [address], [place] [phone] * SCANNED - PAP SMEAR (11/13/2019) Francine Abad DO CHART REVIEW TABS Final Result from Last 3 Months or Most Recently Relevant to Health Maintenance Insurance UMR Advance Directives * CPR (Attempt to Resuscitate) (Latest Code Status on File) Date Activated Date Inactivated Comments 07/29/2023 8:22 PM 07/31/2023 1:26 PM Question Answer Comments Code Status (Patient has no pulse and is not breathing): CPR (Attempt to Resuscitate) Medical Interventions (Patie nt has pulse or is breathing): Full * CPR (Attempt to Resuscitate) Date Activated Date Inactivated Comments 07/28/2023 9:16 PM 07/29/2023 8:22 PM Question Answer Comments Code Status (Patient has no pulse and is not breathing): CPR (Attempt to Resuscitate) Medical Interventions (Patie nt has pulse or is breathing): Full Support Care Teams Chief Risk Officer Relationship Specialty Start Date End Date Francine Abad DO [address] [place] [address] PCP - General Family Medicine 03/08/17
--- OUTSIDE RECORDS SUMMARY | 2024-10-06 14:00 | XMS_ITS | Encounter Summary ---
[facility] Address [address] [place] [address] Care Team Providers Care Frame Trimmer Name Role Phone PolloFrancine lovell Primary Care Provider +1- [phone] Encounter Details Date Type Department Care Team (Latest Contact Info) Description 08/27/2024 Travel Social History Tobacco Use Types Packs/Day Years Used Date Smoking Tobacco: Former Cigarettes 0.1 2 2 017 - 2019 Passive Smoke Exposure: Past Smokeless Tobacco: Never Comments:Vape Alcohol Use Standard Drinks/Week Comments Not Currently 2 (1 standard drink = 0.6 oz pur e alcohol) [facility] Utilities Answer Date Recorded In the [...] Brief Depression Severity Measure Score 0 09/28/2022 [facility] [place] of Occupat ional Health - Occupational Stress [...] things needed for daily living? No 07/28/2023 [place] Depression Scale Answer Date Recorded Retired [place] Depression Score 5 09/10/2023 Retired EPD Scale: [...] GED or equivalent No 07/28/2023 Preferred Language Danish 07/28/2023 PHQ-2 Answer Date Recorded Retired PHQ-9: Brief Depression Severity Measure Score 0 07/28/2023 Comments No Sex and Gender Information Value Date Recorded Sex Assigned at Female 11/09/2019 11:08 AM EDT Legal Sex Female 11:24 AM EDT Gender Identity Female 11/09/2019 11:08 AM EDT Sexual Orientation Straight 04/06/2024 8: 44 AM EST documented as of this encounter Plan of Treatment Not on file documented as of this encounter Visit Diagnoses Not on filedocumented in this encounter Care Teams Frame Trimmer Relationship Specialty Start Date End Date Francine Abad DO [address] [place] [address] PCP - General Family Medicine 03/08/17 documented as of this encounter
--- OUTSIDE RECORDS SUMMARY | 2024-10-06 14:00 | XMS_ITS | Encounter Summary ---
[facility] [address] [place] [address] Care Team Providers Care Brick Tender Name Role Phone PolloFrancine lovell Primary Care Provider [phone]- [phone] Encounter Details Date Type Department Care Team (Latest Contact Info) Description 08/31/2024 Travel Social History Tobacco Use Types Packs/Day Years Used Date Smoking Tobacco: Former Cigarettes 0.1 2 2 017 - 2019 Passive Smoke Exposure: Past Smokeless Tobacco: Never Comments:Vape Alcohol Use Standard Drinks/Week Comments Not Currently 2 (1 standard drink = 0.6 oz pur e alcohol) [facility] Utilities Answer Date Recorded In the past [...] Brief Depression Severity Measure Score 0 09/28/2022 [facility] [place] of Occupat ional Health - Occupational Stress [...] things needed for daily living? No 07/28/2023 [place] Depression Scale Answer Date Recorded Retired [place] Depression Score 5 09/10/2023 Retired EPD Scale: [...] GED or equivalent No 07/28/2023 Preferred Language Niuean 07/28/2023 PHQ-2 Answer Date Recorded Retired PHQ-9: [...] on filedocumented in this encounter Care Teams Brick Tender Relationship Specialty Start Date End Date Francine Abad DO Shaina [place] [address] PCP - General Family Medicine 03/08/17 documented as of this encounter
== END 2024-10-05 23:59 | disposition home or self-care (01) ==
LOC: LAB.DROPOF 10-06 13:57
PROVIDERS: PCP Obstetrics & Gynecology; Visit Provider Obstetrics & Gynecology
DX: Z34.92 Encounter for supervision of normal pregnancy, unspecified, second trimester (principal)
CPT/HCPCS: 87086

== ENCOUNTER 2024-10-20 16:19 | Outpatient (CLI) | payer OTHER, SELFPAY ==
--- OUTSIDE RECORDS SUMMARY | 2024-08-27 14:15 | XMS_ITS | Encounter Summary ---
[facility] [address] [place] [address] Care Team Providers Care Special Warfare Combatant Crewman Name Role Phone Francine Abad Primary Care Provider [phone] Reason for Visit * Reason Comments Follow-up On bloodwork Encounter Details Date Type Department Care Team (Late st Contact Info) Description 08/27/2024 2:15 PM EDT Office Visit [facility] RHEUMATOLOGY [address] [phone] Chetan Pozo MD [address] [phone] Multiple joint pain (Primary Dx); Fibromyalgia; Positive GRICELDA (antinuclear antibody); Psoriasis; Chronic fatigue Social History Tobacco Use Types Packs/Day Years Used Date Smoking Tobacco: Former Cigarettes 0.1 2 2 017 - 2018 Passive Smoke Exposure: Past Smokeless Tobacco: Never Comments:Vape Alcohol Use Standard Drinks/Week Comments Not Currently 2 (1 standard drink = 0.6 oz pur e alcohol) [facility] Utilities Answer Date Recorded In the past 12 months has e [employer], gas, oil, or water company threatened to [...] Brief Depression Severity Measure Score 0 09/28/2022 [facility] - Occupational Stress Questionnaire Answer Date Recorded [...] things needed for daily living? No 07/28/2023 [place] Depression Scale Answer Date Recorded Retired [place] Depression Score 5 09/10/2023 Retired EPD Scale: [...] GED or equivalent No 07/28/2023 Preferred Language Chadian 07/28/2023 PHQ-2 Answer Date Recorded Retired PHQ-9: [...] fatigue This is a longstanding problem. * Chetan Pozo MD - 08/27/2024 2:15 [...] stable. Still with FMS symptoms. Seeing her customer service representative teacher next week. No joint swelling. Her [...] INTRAOPERATIVE CHOLANGIOGRAM; Surgeon: Shay Carlton MD; Location: [facility] OR; Service: FACIAL RECONSTRUCTION SURGERY 2001 Related [...] or fail to improve. Chetan Pozo MD [facility] [place] * Chetan Pozo MD - 08/24/2024 12:47 [...] fatigue documented in this encounter Care Teams Special Warfare Combatant Crewman Relationship Specialty Start Date End Date Francine Abad DO [address] [place] [address] PCP - General Family Medicine 03/08/17 documented as of this encounter
--- OUTSIDE RECORDS SUMMARY | 2024-08-31 11:00 | XMS_ITS | Encounter Summary ---
[facility] Organization [facility] Address [address] [place] [address] Care Team Providers Care General Maintenance Engineer Name Role Phone Francine Abad Primary Care Provider [phone]- [phone] Reason for Visit * Reason Comments Thyroid Problem Pt is 8 weeks pregna nt Encounter Details Date Type Department Care Team (Late st Contact Info) Description 08/31/2024 11:00 AM EDT Office Visit [facility] ENDOCRINOLOGY [address] [place] [phone] Kelly Vidal PA-C [address] [place], [place] [id number] Thyroid disease during in first trimester (Primary Dx); Anti-TPO antibodies present Social History Tobacco Use Types Packs/Day Years Used Date Smoking Tobacco: Former Cigarettes 0.1 2 2 017 - 2019 Passive Smoke Exposure: Past Smokeless Tobacco: Never Comments:Vape Alcohol Use Standard Drinks/Week Comments Not Currently 2 (1 standard drink = 0.6 oz pur e alcohol) [facility] Utilities Answer Date Recorded In the past [...] Brief Depression Severity Measure Score 0 09/28/2022 [facility] - Occupational [...] things needed for daily living? No 07/28/2023 [place] Depression Scale Answer Date Recorded Retired [place] Depression Score 5 09/10/2023 Retired EPD Scale: [...] none 07/28/2023 Family and Community Support Answer Rviera e Recorded If for any reason you [...] GED or equivalent No 07/28/2023 Preferred Language Afghan 07/28/2023 PHQ-2 Answer Date Recorded Retired PHQ-9: [...] . Had recent TSH done 08/24 at [facility] and TSH slightly low. Taking trisha . [...] Labs from 08/24/2024 TSH: 0.22 done at [facility] 04/13/2024 TSH: 1.8, FT4: 1.39, total T3: [...] INTRAOPERATIVE CHOLANGIOGRAM; Surgeon: Shay Carlton MD; Location: [facility] OR; Service: FACIAL RECONSTRUCTION SURGERY 2001 [...] FREET4 1.63 09/28/2022 No results found for: A4TOCVQ T3 No results found for: T3FREE Lab Results Component Value Date A5LCIZH 180.0 04/13/2024 TRAb No results found for: [...] present documented in this encounter Care Teams General Maintenance Engineer Relationship Specialty Start Date End Date Francine Abad DO [address] [place], [place] [phone] PCP - General Family Medicine 03/08/17 documented as of this encounter
[2024-10-20 17:24] LABS: Coronavirus 19, PCR Not Detected (NotDetected); Influenza A, PCR Not Detected (NotDetected); Influenza B, PCR Not Detected (NotDetected)
--- OUTSIDE RECORDS SUMMARY | 2024-10-21 13:12 | XMS_ITS | Clinical Summary ---
Author Organization [facility] Address [address] [place] [address] Care Team Providers Care Sales Outfitter Name Role Phone PolloFrancine lovell Adina YE [...] Date Diagnosed Date Thyroid disease during in [facility] 08/31/2024 Assessment & Plan (09/01/2024 6:16 AM [...] Office Visit [facility]CR[facility] [address] [address] Kelly Vidal PA-C Thyroid disease during in first trimester (Primary Dx); Anti-TPO antibodies present 08/31/2024 Travel 08/27/2024 2:15 PM EDT Office Visit [facility] [address] [address] Chetan Pozo MD Multiple joint [...] disease Maternal Grandmother Melanie Arthritis Mother Ara Reian's thyroiditis Mother Ara Thyroid disease Mother Ara [...] drink = 0.6 oz pur e alcohol) [employer] Utilities Answer Date Recorded In the past 12 months has [employer], gas, oil, or water [employer] threatened to shut off services in your [...] Brief Depression Severity Measure Score 0 09/28/2022 [facility] [place] of Occupat ional Health - Occupational Stress [...] things needed for daily living? No 07/28/2023 [place] Depression Scale Answer Date Recorded Retired [place] Depression Score 5 09/10/2023 Retired EPD Scale: [...] GED or equivalent No 07/28/2023 Preferred Language Tamazight 07/28/2023 PHQ-2 Answer Date Recorded Retired PHQ-9: [...] ve Non-Reacti ve 12/12/2022 1:03 AM EDT [facility] Blood Venipuncture / Unknown 12/11/2022 3:32 PM EDT 12/11/2022 3:37 PM EDT Narrative [facility] - 12/12/2022 1:03 AM EDT Results may be falsely decreased if patient taking Biotin. Shiva Soares MD LAB BLOOD ORDERABLES Final Result [facility]
[address] [place] [address], * Gardnerella vaginalis, Trichomonas vaginalis, Kimmy albicans, DNA - Swab, Vagina (12/11/2022) Swab Vaginal structure / Unknown Shiva Soares MD MICROBIOLOGY - GENERAL [facility] Final Result [facility] [place] [address] * LIQUID-BASED PAP SMEAR, [facility]) (09/28/2022 11:02 AM EDT) Reference Lab Report [facility] [address] [place] [address] or [phone] Ag Piña M.D., Flow Specialist PATIENT NAME LAB[facility]AT[facility] NO. [place] [id number] AGE SEX SSN CLIENT REF # [facility] 2000 F [id number] [facility] REQUESTING Lenard ATTENDING M.D. COPY TO. Shaina [address]HA [address], [place] [address] DATE COLLECTED DATE RECEIVED DATE REPORTED 09/28/2022 [...] 51, 52, 56, 58, 59, 66, 68 ANALYTICAL SCIENTIST: RUIZ JETER (ASCP) CPT CODES: [id number], [id number] 10/01/2022 2:06 PM EDT [facility] ThinPrep Vial Cervix uteri structure / Unknown Collection / Unknown 09/28/2022 11:02 AM EDT 09/28/2022 11:02 AM EDT Francine Abad DO PATHOLOGY/CYTOLOGY ORDERABL ES Final Result [facility]
[address] [place] [address], [place] [phone] * SCANNED - PAP SMEAR (11/13/2019) Francine [...] or is breathing): Full Support Care Teams Sales Outfitter Relationship Specialty Start Date End Date Francine Abad DO [address] [place] [address] PCP - General Family Medicine 03/08/17
--- OUTSIDE RECORDS SUMMARY | 2024-10-21 13:12 | XMS_ITS | Encounter Summary ---
[facility] Address [address] [place] [address] Care Team Providers Care Disk Recoater Name Role Phone PolloFrancine lovell Primary Care Provider [phone]- [phone] Encounter Details Date Type Department Care Team (Latest Contact Info) Description 08/31/2024 Travel Social History Tobacco Use Types Packs/Day Years Used Date Smoking Tobacco: Former Cigarettes 0.1 2 2 017 - 2019 Passive Smoke Exposure: Past Smokeless Tobacco: Never Comments:Vape Alcohol Use Standard Drinks/Week Comments Not Currently 2 (1 standard drink = 0.6 oz pur e alcohol) [facility] Utilities Answer Date Recorded In the past [...] Brief Depression Severity Measure Score 0 09/28/2022 [facility] [place] of Occupat ional Health - Occupational Stress [...] things needed for daily living? No 07/28/2023 [place] Depression Scale Answer Date Recorded Retired [place] Depression Score 5 09/10/2023 Retired EPD Scale: [...] GED or equivalent No 07/28/2023 Preferred Language Portuguese 07/28/2023 PHQ-2 Answer Date Recorded Retired PHQ-9: [...] on filedocumented in this encounter Care Teams Disk Recoater Relationship Specialty Start Date End Date Francine [place] [address] PCP - General Family Medicine 03/08/17 documented as of this encounter
--- OUTSIDE RECORDS SUMMARY | 2024-10-21 13:12 | XMS_ITS | Encounter Summary ---
[facility] [address] [place] [address] Care Team Providers Care Quality Control Microbiology Supervisor Name Role Phone PolloFrancine lovell Primary Care Provider +1- [phone] Encounter Details Date Type Department Care Team (Latest Contact Info) Description 08/27/2024 Travel Social History Tobacco Use Types Packs/Day Years Used Date Smoking Tobacco: Former Cigarettes 0.1 2 2 017 - 2019 Passive Smoke Exposure: Past Smokeless Tobacco: Never Comments:Vape Alcohol Use Standard Drinks/Week Comments Not Currently 2 (1 standard drink = 0.6 oz pur e alcohol) [facility] Utilities Answer Date Recorded In the [...] Brief Depression Severity Measure Score 0 09/28/2022 [facility] [place] of Occupat ional Health - Occupational Stress [...] things needed for daily living? No 07/28/2023 [place] Depression Scale Answer Date Recorded Retired [place] Depression Score 5 09/10/2023 Retired EPD Scale: [...] GED or equivalent No 07/28/2023 Preferred Language Jamaican 07/28/2023 PHQ-2 Answer Date Recorded Retired PHQ-9: [...] on filedocumented in this encounter Care Teams Quality Control Microbiology Supervisor Relationship Specialty Start Date End Date Francine Abad DO [place] [address] PCP - General Family Medicine 03/08/17 documented as of this encounter
== END 2024-10-20 23:59 | disposition home or self-care (01) ==
LOC: LAB.DROPOF 10-21 13:07
PROVIDERS: PCP Nurse Practitioner Family; Visit Provider Nurse Practitioner Family
DX: R05.1 Acute cough (principal); Z33.1 Pregnant state, incidental
CPT/HCPCS: 87631

== ENCOUNTER 2024-11-18 09:16 | Outpatient (CLI) | payer OTHER, SELFPAY ==
--- NOTE | 2024-11-18 09:00 | US_ITS ---
PROCEDURE: US OB /MATERNAL DETAIL CLINICAL INDICATION: schedule 20wk anatomy scan COMPARISON: No exams were available for comparison FINDINGS: Transabdominal sonographic images of the pelvis were obtained. From her established due date she is 20 weeks 1 day. Single viable intrauterine gestation. Cephalic position. Placenta: Anteriorplacenta grade 1. There are several placental lakes. There is an average amount of fluid. The cervix appears satisfactory. Closed and measuring 5.74 cm in length. Complete survey performed and was unremarkable on the submitted images as in PACS. No discrete anomalies identified on survey imaging by technologist. Active fetus. Three-vessel cord with satisfactory umbilical cord insertion. 4- chamber heart noted. Situs, aortic arch, LVOT, RVOT, three-vessel view appear normal. There is a small intracardiac echogenic foci in the left ventricle. Survey of brain & ventricles Unremarkable. Cerebellum, thalamus, choroid plexus, cisterna magna appear normal. Face and neck survey unremarkable. Profile, nasion, lips and nose appeared normal. Diaphragm and chest views unremarkable. Abdomen: Both kidneys noted and unremarkable. Stomach and bladder noted and satisfactory. Spine: Survey of the spine satisfactory with no anomalies identified nor imaged. Cervical, thoracic, lower spine appear normal. Both arms and legs noted. Amniotic Fluid: Adequate. MVP 4.24 cm Measurements: Average ultrasound age 19weeks 4days. Estimated due date by ultrasound age 0204/10/2025. Estimated weight 316g BPD = 19weeks 1day HC = 19weeks AC = 20weeks 1day FL = 20weeks 0 days Growth Percentile= 29 Heart Rate = 152bpm Cerebellum = 18weeks 6days Humerus = 20weeks 2days HC/AC is 1.09 FL/BPD is 0.73 FL/AC is 0.22 IMPRESSION: 1. Viable fetus in the cephalic presentation with anterior placenta grade 1. There are several placental lakes. 2. The fluid is within normal limits with an MVP 4.24 cm. 3. There is a small intracardiac echogenic foci within the left ventricle and suggest follow-up exam at 28 weeks. 4. The rest of the anatomical scan appears normal. 5. biometry is consistent with the dates. Dictated by: Anton White MD 11/18/2024 12:07 Anton White MD in OV 11/18/2024 12:07
--- OUTSIDE RECORDS SUMMARY | 2024-11-18 09:26 | XMS_ITS | Clinical Summary ---
Author Organization [facility] Address [address] [place] [address] Care Team Providers Care Exterminator Termite Name Role Phone PolloFrancine lovell Adina YE [...] Diagnosed Date Thyroid disease during in [facility] 08/31/2024 Assessment & Plan (09/01/2024 6:16 [...] Description 08/31/2024 11:00 AM EDT Office Visit [facility] ENDOCRINOLOGY [address] [address] Kelly Vidal PA-C Thyroid disease during in first trimester (Primary Dx); Anti-TPO antibodies present 08/31/2024 Travel 08/27/2024 2:15 PM EDT Office Visit [facility] RHEUMATOLOGY [address] [address] Chetan Pozo MD Multiple joint [...] drink = 0.6 oz pur e alcohol) [employer] Utilities Answer Date Recorded In the past 12 months has [facility], gas, oil, or water [employer] threatened to shut off services in your [...] Brief Depression Severity Measure Score 0 09/28/2022 [facility] of Occupat ional Health - Occupational Stress [...] things needed for daily living? No 07/28/2023 [place] Depression Scale Answer Date Recorded Retired [place] Depression Score 5 09/10/2023 Retired EPD Scale: [...] GED or equivalent No 07/28/2023 Preferred Language Lao 07/28/2023 PHQ-2 Answer Date Recorded Retired PHQ-9: [...] 11/13/2020 11/13/2019 ANNUAL PHYSICAL 09/29/2023 09/28/2022, 07/13/2021 INFLUENZA VACCINE 09/25/2024 03/08/2017 (Declined) PAP SMEAR 09/28/2025 09/28/2022, 09/28/2022, [...] Hepatitis C Antibody (12/11/2022 3:32 PM EDT) [facility] Hepatitis C Ab Non-Reacti ve Non-Reacti ve 12/12/2022 1:03 AM EDT [facility] Blood Venipuncture / Unknown 12/11/2022 3:32 PM EDT 12/11/2022 3:37 PM EDT Narrative [facility] - 12/12/2022 1:03 AM EDT Results may be falsely decreased if patient taking Biotin. Shiva Soares MD LAB BLOOD ORDERABLES Final Result [facility]
[address] [place] [address], * Gardnerella vaginalis, Trichomonas vaginalis, Kimmy albicans, DNA - Swab, Vagina (12/11/2022) Swab Vaginal structure / Unknown Shiva Soares MD MICROBIOLOGY - GENERAL [facility] Final Result [facility] [address] [place] [address] * LIQUID-BASED PAP SMEAR, [facility] (VIRY,COR,MAD) (09/28/2022 11:02 AM EDT) Reference Lab Report [facility] [address] [place] [address] or [phone] Ag Piña M.D., Wiping Cloth Cutter PATIENT NAME LABORATORY NO. [address] [place] RE[place] [id number] AGE SEX SSN CLIENT REF # [facility] OF 24 2000 F [id number] [facility] REQUESTING Lenard ATTENDING M.D. COPY TO. Shaina [address] [place], [place] [address] DATE COLLECTED DATE RECEIVED DATE REPORTED 09/28/2022 [...] 51, 52, 56, 58, 59, 66, 68 CT SCAN SPECIAL PROCEDURES TECHNOLOGIST: RUIZ JETER (ASCP) CPT CODES: [id number], [id number] 10/01/2022 2:06 PM EDT [facility] ThinPrep Vial Cervix uteri structure / Unknown Collection / Unknown 09/28/2022 11:02 AM EDT 09/28/2022 11:02 AM EDT Francine Abad DO PATHOLOGY/CYTOLOGY ORDERABL ES Final Result [facility]
[address] [place] [address], * SCANNED - PAP SMEAR (11/13/2019) Francine [...] or is breathing): Full Support Care Teams Exterminator Termite Relationship Specialty Start Date End Date Francine Abad DO [address] [place] [address] PCP - General Family Medicine 03/08/17
== END 2024-11-18 23:59 | disposition home or self-care (01) ==
LOC: RAD 09:17
PROVIDERS: PCP Nurse Practitioner Family; Visit Provider Obstetrics & Gynecology
DX: O28.3 Abnormal ultrasonic finding on antenatal screening of mother (principal); O35.BXX0 Maternal care for other (suspected) fetal abnormality and damage, fetal cardiac anomalies, not applicable or unspecified; O21.9 Vomiting of pregnancy, unspecified; O99.282 Endocrine, nutritional and metabolic diseases complicating pregnancy, second trimester; E06.3 Autoimmune thyroiditis; R51.9 Headache, unspecified; Z3A.20 20 weeks gestation of pregnancy
CPT/HCPCS: 76811

== ENCOUNTER 2025-01-11 13:04 | Outpatient (CLI) | payer OTHER, SELFPAY ==
--- NOTE | 2025-01-11 13:00 | US_ITS ---
PROCEDURE: US OB FOLLOW UP CLINICAL INDICATION: growth, EIF, palcental lakes COMPARISON: US US OB /MATERNAL DETAIL from 11/18/2024 FINDINGS: Transabdominal sonographic images of the pelvis were obtained. The following parameters are obtained: From her established due date she is 27weeks 6days Viable fetus in the cephalic presentation with an anterior placenta grade 1. Placenta is 3.79 cm away from the internal cervical os when seen transvaginally. There are several placental lakes. The cervix measures 3.77 cm in length transvaginally heart rate: 161bpm bpm. BPD: 26weeks 6days, 11 percent HC: 26weeks 5days, 3 percent AC: 27weeks 1day, 21 percentile FL: 27weeks 0 days, 12 percentile HC/AC: 1.08 FL/BPD: 0.75 FL/AC: 0.22 Growth percentile: 12 Amniotic fluid: MVP 4.55 cm No obvious anomalies evident. profile seen, stomach, bladder, kidneys, three-vessel cord, four chamber heart appear normal. There continues to be a small intracardiac echogenic foci within the left ventricle. IMPRESSION: 1. Viable fetus in the cephalic presentation with an anterior placenta grade 1. The placenta is 3.79 cm away from the internal cervical os. 2. The fluid is within normal limits with an MVP 4.55 cm. 3. There has been good interval growth with the fetus currently 12th percentile. 4. There continues to be a small intracardiac echogenic foci within the left ventricle. 5. The rest of the limited anatomical scan appears normal. Dictated by: Anton White MD 01/11/2025 16:56 Anton White MD in OV 01/11/2025 16:56
[2025-01-11 14:18] LABS: Hematocrit 34.7 % (37.0-47.0); Hemoglobin 11.7 g/dL (12.2-16.2); Immature Granulocytes % 0.4 %; Mean Corpuscular HGB Conc 33.7 g/dL (31.8-35.4); Mean Corpuscular Hemoglobin 30.2 pg (27.0-31.2); Mean Corpuscular Volume 89.7 fl (81-99); Nucleated Red Blood Cells % 0 %; Platelet Count 217 K/mm3 (142-424); Red Blood Count 3.87 M/mm3 (4.20-5.40); Red Cell Distribution Width-SD 41.7 fL; White Blood Count 11.1 K/mm3 (4.8-10.8)
[2025-01-11 15:44] LABS: Glucose 1 Hour 132 mg/dL (74-100)
--- NOTE | 2025-01-11 15:54 | PC.NURSE ---
Not given per md order
[2025-01-12 14:50] LABS: RPR W/RFX Titers Nonreactive (Nonreactive)
== END 2025-01-11 23:59 | disposition home or self-care (01) ==
LOC: RAD 13:43 → INF 15:17
PROVIDERS: PCP Nurse Practitioner Family; Visit Provider Obstetrics & Gynecology
DX: O28.3 Abnormal ultrasonic finding on antenatal screening of mother (principal); O43.892 Other placental disorders, second trimester; Z3A.23 23 weeks gestation of pregnancy
CPT/HCPCS: 36415; 76816; 82947; 85025; 86592

== ENCOUNTER 2025-01-29 20:55 | Outpatient (CLI) | payer OTHER, SELFPAY ==
--- OUTSIDE RECORDS SUMMARY | 2025-01-29 21:00 | XMS_ITS | Clinical Summary ---
Author Organization [facility] Address [address] [place] [address] Care Team Providers Care Mission Systems Engineer Name Role Phone PolloFrancine lovell Adina YE Primary Care Provider [phone] Allergies No known active allergies Medications * [...] disease during in 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 Utilities Answer Date Recorded In the past 12 months has th e electric, gas, oil, or water company [...] Brief Depression Severity Measure Score 0 09/28/2022 [facility] of Occupat ional Health - Occupational [...] things needed for daily living? No 07/28/2023 [place] Depression Scale Answer Date Recorded [place] Depression Scale Total 5 09/10/2023 The thought of harming myself has occurred to me . Unrecognized value 09/10/2023 Abuse Screen Answer Date Recorded [...] GED or equivalent No 07/28/[address] [place] 07/28/2023 PHQ-2 Answer Date Recorded Retired PHQ-9: [...] ve Non-Reacti ve 12/12/2022 1:03 AM EDT [facility] Blood Venipuncture / Unknown 12/11/2022 3:32 PM EDT 12/11/2022 3:37 PM EDT Narrative [facility] - 12/12/2022 1:03 AM EDT Results may be falsely decreased if patient taking Biotin. Shiva Soares MD LAB BLOOD ORDERABLES Final Result [facility]
[address] [place] [address], * Gardnerella vaginalis, Trichomonas vaginalis, Kimmy albicans, DNA - Swab, Vagina (12/11/2022) Swab Vaginal structure / Unknown Shiva Soares MD MICROBIOLOGY - GENERAL ORDE [facility] Final Result [facility] [place] [address] * LIQUID-BASED PAP SMEAR, [facility] (VIRY,COR,MAD) (09/28/2022 11:02 AM EDT) [facility] Reference Lab Report [facility] [address] [place] [address] or [phone] Ag Piña M.D., Temporary Data Entry Clerk PATIENT NAME LABORATORY NO. [address] [place] [id number] AGE SEX SSN CLIENT REF # [facility] OF 2000 F [id number] [facility] REQUESTING Lenard ATTENDING M.D. COPY TO. [address] [place] [address] DATE COLLECTED DATE RECEIVED DATE REPORTED 09/28/2022 [...] 51, 52, 56, 58, 59, 66, 68 SMOKE JUMPER SUPERVISOR: RUIZ JETER (ASCP) CPT CODES: [id number], [id number] 10/01/2022 2:06 PM EDT [facility] ThinPrep Vial Cervix uteri structure / Unknown Collection / Unknown 09/28/2022 11:02 AM EDT 09/28/2022 11:02 AM EDT Francine Abad DO PATHOLOGY/CYTOLOGY ORDERABL ES Final Result [facility]
[address] [place] [address], * SCANNED - PAP SMEAR (11/13/2019) Francine Abad DO CHART REVIEW TABS Final Result from Last 3 Months or Most Recently Relevant to [place] [id number] Advance Directives * CPR (Attempt to Resuscitate) [...] or is breathing): Full Support Care Teams Mission Systems Engineer Relationship Specialty Start Date End Date Francine Abad [place] [address] PCP - General Family Medicine 03/08/17
[2025-01-29] MEDS: BETAMETHASONE ACET/PHOS 6MG/ML 5ML MDV 12 MG IM (21:05)
--- NOTE | 2025-01-29 21:07 | PC.NURSE ---
Pt arrived ambulatory for her second dose of Betamethasone 12mg IM given to the right deltoid at 2104. Pt tolerated this well and denies any needs or concerns. Pt and SO leaving the unit ambulatory at 2106.
== END 2025-01-29 23:59 | disposition home or self-care (01) ==
LOC: INF 20:58
PROVIDERS: PCP Nurse Practitioner Family; Visit Provider Nurse Practitioner Obstetrics & Gynecology
DX: O47.03 False labor before 37 completed weeks of gestation, third trimester (principal); Z3A.30 30 weeks gestation of pregnancy
CPT/HCPCS: 96372; J0702

== ENCOUNTER 2025-02-09 14:01 | Outpatient (CLI) | payer OTHER, SELFPAY ==
--- OUTSIDE RECORDS SUMMARY | 2025-02-09 14:05 | XMS_ITS | Clinical Summary ---
Author Organization [facility] Address [address] [place] [address] Care Team Providers Care Entry Level Accounting Clerk Name Role Phone PolloFrancine lovell Adina YE [...] Date Diagnosed Date Thyroid disease during in [facility] 08/31/2024 Assessment & Plan (09/01/2024 6:16 AM [...] drink = 0.6 oz pur e alcohol) [facility] Utilities Answer Date Recorded In the [...] Brief Depression Severity Measure Score 0 09/28/2022 [facility] of Occupat ional Health - Occupational [...] things needed for daily living? No 07/28/2023 [place] Depression Scale Answer Date Recorded [place] Depression Scale Total 5 09/10/2023 The thought [...] GED or equivalent No 07/28/2023 Preferred Language Honduran 07/28/2023 PHQ-2 Answer Date Recorded Retired PHQ-9: [...] ve Non-Reacti ve 12/12/2022 1:03 AM EDT [facility] Blood Venipuncture / Unknown 12/11/2022 3:32 PM EDT 12/11/2022 3:37 PM EDT Narrative [facility] - 12/12/2022 1:03 AM EDT Results may be falsely decreased if patient taking Biotin. Shiva Soares MD LAB BLOOD ORDERABLES Final Result [facility]
[address] [place] [address], * Gardnerella vaginalis, Trichomonas vaginalis, Kimmy albicans, DNA - Swab, Vagina (12/11/2022) Swab Vaginal structure / Unknown Shiva Soares MD MICROBIOLOGY - GENERAL ORDE [facility] Final Result [facility] DI[facility]IC [facility] [place] [address] * LIQUID-BASED PAP SMEAR, [facility] (VIRY,COR,MAD) (09/28/2022 11:02 AM EDT) [facility] Reference Lab Report [facility] [address] [place] [address] or [phone] Ag Piña M.D., Capsule Filling Machine Operator PATIENT NAME LABORATORY NO. [address] [place] RE[place] [id number] AGE SEX SSN CLIENT REF # [facility] OF 2000 F [id number] [facility] REQUESTING Lenard ATTENDING M.D. COPY TO. [address] [place] [address] DATE COLLECTED DATE RECEIVED DATE REPORTED 09/28/2022 [...] 51, 52, 56, 58, 59, 66, 68 EXTRA HAND: RUIZ JETER (ASCP) CPT CODES: [id number], [id number] 10/01/2022 2:06 PM EDT [facility] ThinPrep Vial Cervix uteri structure / Unknown Collection / Unknown 09/28/2022 11:02 AM EDT 09/28/2022 11:02 AM EDT Francine Abad DO PATHOLOGY/CYTOLOGY ORDERABL ES Final Result [facility]
[address] [place] [address], * SCANNED - PAP SMEAR (11/13/2019) Francine Abad DO CHART REVIEW TABS Final Result from Last 3 Months or Most Recently Relevant to Health Maintenance Insurance Advance Directives * CPR (Attempt to Resuscitate) [...] or is breathing): Full Support Care Teams Entry Level Accounting Clerk Relationship Specialty Start Date End Date Francine [place] [address] PCP - General Family Medicine 03/08/17
--- NOTE | 2025-02-09 14:15 | US_ITS ---
PROCEDURE: US OB BIOPHYSICAL PROFILE CLINICAL INDICATION: 4wk repeat u/s for growth COMPARISON: US US OB /MATERNAL DETAIL from 11/18/2024 US US OB FOLLOW UP from 01/11/2025 US US OB FOLLOW UP from 01/28/2025 FINDINGS: Transabdominal sonographic images of the uterus were obtained. From her established due date she is 32weeks 0 days. The following parameters are obtained: Viable Fetus in the cephalic presentation with and anterior placenta grade 1- 2. Average ultrasound age is 30weeks 5days Estimated weight 1,602g Transvaginally the cervix measures 2.33-2.59 cm in length. 2.1 cm with Valsalva. Measurements: heart Rate = 138bpm BPD = 31weeks 0 days, 14 percentile HC = 30weeks 3days, <2 percentile AC = 30weeks 5days, 14 percentile FL = 30weeks 3days, 6 percentile HC/AC is 1.05 FL/BPD is 0.75 FL/AC is 0.22 8 percentile Amniotic fluid index: 12.67cm, MVP 4.92 cm Qualitative AFV:2 Breathing movements: 2 Gross Body Movements: 2 Tone: 2 Biophysical profile score: 8 No obvious anomalies evident.Kidneys, stomach, bladder, four-chamber heart, three-vessel cord appear normal. IMPRESSION: 1. Viable fetus in the cephalic presentation with an anterior placenta grade 1-2. 2. The fluid is within normal limits with an amniotic fluid index 12.67 cm, MVP 4.92 cm. 3. Biophysical profile is 8/8 with good breathing movement and movement seen. 4. Fetus currently measures 8th percentile with the abdominal circumference 14th percentile. 5. The cervix measures 2.3-2.59 cm in length transvaginally. With Valsalva the cervix measures 2.1 cm. 6. Limited anatomical scan appears normal. Dictated by: Anton White MD 02/09/2025 15:11 Anton White MD in OV 02/09/2025 15:11
== END 2025-02-09 23:59 | disposition home or self-care (01) ==
LOC: RAD 14:02
PROVIDERS: PCP Nurse Practitioner Family; Visit Provider Obstetrics & Gynecology
DX: O36.5930 Maternal care for other known or suspected poor fetal growth, third trimester, not applicable or unspecified (principal); Z3A.32 32 weeks gestation of pregnancy
CPT/HCPCS: 76816; 76819

== ENCOUNTER 2025-02-12 11:51 | Outpatient (CLI) | payer OTHER, SELFPAY ==
--- OUTSIDE RECORDS SUMMARY | 2025-02-12 11:54 | XMS_ITS | Clinical Summary ---
Author Organization [facility] Address [address] [place] [address] Care Team Providers Care Grounds Manager Name Role Phone PolloFrancine lovell Adina YE [...] Date Diagnosed Date Thyroid disease during in [facility] 08/31/2024 Assessment & Plan (09/01/2024 6:16 [...] drink = 0.6 oz pur e alcohol) [facility] Utilities Answer Date Recorded In the [...] Brief Depression Severity Measure Score 0 09/28/2022 [facility] of Occupat ional Health - Occupational [...] things needed for daily living? No 07/28/2023 [place] Depression Scale Answer Date Recorded [place] Depression Scale Total 5 09/10/2023 The thought [...] GED or equivalent No 07/28/2023 Preferred Language Belgian 07/28/2023 PHQ-2 Answer Date Recorded Retired PHQ-9: [...] ve Non-Reacti ve 12/12/2022 1:03 AM EDT [facility] Blood Venipuncture / Unknown 12/11/2022 3:32 PM EDT 12/11/2022 3:37 PM EDT Narrative [facility] - 12/12/2022 1:03 AM EDT Results may be falsely decreased if patient taking Biotin. Shiva Soares MD LAB BLOOD ORDERABLES Final Result [facility]
[address] [place] [address], * Gardnerella vaginalis, Trichomonas vaginalis, Kimmy albicans, DNA - Swab, Vagina (12/11/2022) Swab Vaginal structure / Unknown Shiva Soares MD MICROBIOLOGY - GENERAL ORDE [facility] Final Result [facility] DIAG[facility]IC [facility] [place] [address] * LIQUID-BASED PAP SMEAR, [facility] (VIRY,COR,MAD) (09/28/2022 11:02 AM EDT) [facility] Reference Lab Report [facility] [address] [place] [address] or [phone] Ag Piña M.D., Bundle Wrapper PATIENT NAME LABORATORY NO. [address] [place] RE[place] [id number] AGE SEX SSN CLIENT REF # [facility] OF 2000 F [id number] [facility] REQUESTING Lenard ATTENDING M.D. COPY TO. [address] [place] [address] DATE COLLECTED DATE RECEIVED DATE REPORTED 09/28/2022 [...] 51, 52, 56, 58, 59, 66, 68 TNT POWDER WORKER: RUIZ JETER (ASCP) CPT CODES: [id number], [id number] 10/01/2022 2:06 PM EDT [facility] ThinPrep Vial Cervix uteri structure / Unknown Collection / Unknown 09/28/2022 11:02 AM EDT 09/28/2022 11:02 AM EDT Francine Abad DO PATHOLOGY/CYTOLOGY ORDERABL ES Final Result [facility]
[address] [place] [address], * SCANNED - PAP SMEAR (11/13/2019) Francine [...] or is breathing): Full Support Care Teams Grounds Manager Relationship Specialty Start Date End Date Franc[place] [address] PCP - General Family Medicine 03/08/17
[2025-02-12 12:05] VITALS: BP 117/68; PULSE 109; RESP 18; TEMP 36.6; O2SAT 99; BMI 22.1
== END 2025-02-12 12:37 | disposition home or self-care (01) ==
LOC: OBOUT 11:51 → OB 11:52
PROVIDERS: PCP Nurse Practitioner Family; Visit Provider Obstetrics & Gynecology
DX: Z34.83 Encounter for supervision of other normal pregnancy, third trimester (principal); Z3A.32 32 weeks gestation of pregnancy
CPT/HCPCS: 99212

== ENCOUNTER 2025-02-16 08:59 | Outpatient (CLI) | payer OTHER, SELFPAY ==
--- NOTE | 2025-02-16 09:00 | US_ITS ---
PROCEDURE: US OB BIOPHYSICAL PROFILE CLINICAL INDICATION: BPP/SD ratio COMPARISON: No exams were available for comparison FINDINGS: Transabdominal sonographic images of the uterus were obtained. From her established due date she is 32weeks 5days. The following parameters are obtained: Viable Fetus in the cephalic presentation with an anterior placenta grade 2. Transvaginally the cervix measures 2.0-2.2 cm and 1.74 cm with Valsalva Measurements: heart Rate = 146bpm Amniotic fluid index: 12.5cm, MVP 5.86 cm Qualitative AFV:2 Breathing movements: 2 Gross Body Movements: 2 Tone: 2 Biophysical profile score: 8 Doppler evaluation of the umbilical artery: SD ratio: 2.69-2.74 Resistive index: 0.63 No obvious anomalies evident.Kidneys, stomach, bladder, four-chamber heart, three-vessel cord appear normal. IMPRESSION: 1. Viable fetus in the cephalic presentation with an anterior placenta grade 2. 2. The fluid is within normal limits with an amniotic fluid index 12.5 cm, MVP 5.86 cm. 3. Biophysical profile is 8/8 with good breathing movement and movement seen. 4. Cervix measures 2.0-2.2 cm transvaginally. 1.74 cm with Valsalva. 5. Limited anatomical scan appears normal. Dictated by: Anton White MD 02/16/2025 12:53 Anton White MD in OV 02/16/2025 12:53
--- OUTSIDE RECORDS SUMMARY | 2025-02-16 09:04 | XMS_ITS | Clinical Summary ---
Author Organization [facility] Address [address] [place] [address] Care Team Providers Care Senior Office Assistant Name Role Phone PolloFrancine lovell Adina YE [...] drink = 0.6 oz pur e alcohol) [facility] Utilities Answer Date Recorded In [...] Brief Depression Severity Measure Score 0 09/28/2022 [facility] of Occupat ional Health - Occupational [...] things needed for daily living? No 07/28/2023 [place] Depression Scale Answer Date Recorded [place] Depression Scale Total 5 09/10/2023 The thought [...] GED or equivalent No 07/28/2023 Preferred Language [place] Islander 07/28/2023 PHQ-2 Answer Date Recorded Retired PHQ-9: [...] ve Non-Reacti ve 12/12/2022 1:03 AM EDT [facility] Blood Venipuncture / Unknown 12/11/2022 3:32 PM EDT 12/11/2022 3:37 PM EDT Narrative [facility] - 12/12/2022 1:03 AM EDT Results may be falsely decreased if patient taking Biotin. Shiva Soares MD LAB BLOOD ORDERABLES Final Result [facility]
[address] [place] [address], * Gardnerella vaginalis, Trichomonas vaginalis, Kimmy albicans, DNA - Swab, Vagina (12/11/2022) Swab Vaginal structure / Unknown Shiva Soares MD MICROBIOLOGY - GENERAL ORDE [facility] Final Result MEDICAL DIAGNOSTIC LAB [facility] [place] [address] * LIQUID-BASED PAP SMEAR, [facility] (VIRY,COR,MAD) (09/28/2022 11:02 AM EDT) [facility] Reference Lab Report [facility] [address] [place] [address] or [phone] Ag Pñia M.D., Board Of Directors PATIENT NAME LABORATORY NO. [address] [place] RE[place]ES [id number] AGE SEX SSN CLIENT REF # [facility] OF 2000 F [id number] [facility] REQUESTING Lenard ATTENDING M.D. COPY TO. [address] [place] [address] DATE COLLECTED DATE RECEIVED DATE REPORTED 09/28/2022 [...] 51, 52, 56, 58, 59, 66, 68 LABOR RELATIONS ANALYST: RUIZ JETER (ASCP) CPT CODES: [id number], [id number] 10/01/2022 2:06 PM EDT [facility] ThinPrep Vial Cervix uteri structure / Unknown Collection / Unknown 09/28/2022 11:02 AM EDT 09/28/2022 11:02 AM EDT Francine Abad DO PATHOLOGY/CYTOLOGY ORDERABL ES Final Result [facility]
[address] [place] [address], * SCANNED - PAP SMEAR (11/13/2019) Francine [...] or is breathing): Full Support Care Teams Senior Office Assistant Relationship Specialty Start Date End Date Francine Abad DO [place] [address] PCP - General Family Medicine 03/08/17
== END 2025-02-16 23:59 | disposition home or self-care (01) ==
LOC: RAD 08:59
PROVIDERS: PCP Nurse Practitioner Family; Visit Provider Obstetrics & Gynecology
DX: O47.03 False labor before 37 completed weeks of gestation, third trimester (principal); O09.293 Supervision of pregnancy with other poor reproductive or obstetric history, third trimester; Z3A.32 32 weeks gestation of pregnancy
CPT/HCPCS: 76819; 76820

== ENCOUNTER 2025-02-19 12:52 | Outpatient (CLI) | payer OTHER, SELFPAY ==
[2025-02-19 12:54] VITALS: BMI 22.2
--- OUTSIDE RECORDS SUMMARY | 2025-02-19 12:55 | XMS_ITS | Clinical Summary ---
Author Organization [facility] Address [address] [place] [address] Care Team Providers Care Ground Crew Supervisor Name Role Phone PolloFrancine lovell Adina YE Primary Care Provider [phone] Allergies No known active allergies Medications * [...] Date Diagnosed Date [facility] disease [facility] 08[facility]/2024 Assessment & Plan (09/01/2024 6:16 [...] drink = 0.6 oz pur e alcohol) [facility] Utilities Answer Date Recorded In the [...] Brief Depression Severity Measure Score 0 09/28/2022 [facility] - Occupational [...] things needed for daily living? No 07/28/2023 [place] Depression Scale Answer Date Recorded [place] Depression Scale Total 5 09/10/2023 The thought [...] GED or equivalent No 07/28/2023 Preferred Language Namibian 07/28/2023 PHQ-2 Answer Date Recorded Retired PHQ-9: [...] ve Non-Reacti ve 12/12/2022 1:03 AM EDT [facility] Blood Venipuncture / Unknown 12/11/2022 3:32 PM EDT 12/11/2022 3:37 PM EDT Narrative [facility] - 12/12/2022 1:03 AM EDT Results may be falsely decreased if patient taking Biotin. Shiva Soares MD LAB BLOOD ORDERABLES Final Result [facility]
[address] [place] [address], * Gardnerella vaginalis, Trichomonas vaginalis, Kimmy albicans, DNA - Swab, Vagina (12/11/2022) Swab Vaginal structure / Unknown Shiva Soares MD MICROBIOLOGY - GENERAL ORDE [facility] Final Result MEDICAL DIAGNOSTIC LAB [facility] [place] [address] * LIQUID-BASED PAP SMEAR, [facility] (VIRY,COR,MAD) (09/28/2022 11:02 AM EDT) [facility] Reference Lab Report [facility] [address] [place] [address] or [phone] Ag Piña M.D., Jewel Stripper PATIENT NAME [facility]AT[facility] [address] [place] [address] [id number] AGE SEX SSN CLIENT REF # [facility] OF 2000 F [id number] [facility] REQUESTING Lenard ATTENDING M.D. COPY TO[address] [place] [address] DATE COLLECTED DATE RECEIVED DATE REPORTED 09/28/2022 [...] 51, 52, 56, 58, 59, 66, 68 QA AUDITOR: RUIZ JETER (ASCP) CPT CODES: 12604, [id number] 10/01/2022 2:06 PM EDT [facility] ThinPrep Vial Cervix uteri structure / Unknown Collection / Unknown 09/28/2022 11:02 AM EDT 09/28/2022 11:02 AM EDT Francine Abad DO PATHOLOGY/CYTOLOGY ORDERABL ES Final Result [facility]
[address] [place] [address], * SCANNED - PAP SMEAR (11/13/2019) Francine [...] or is breathing): Full Support Care Teams Ground Crew Supervisor Relationship Specialty Start Date End Date Francine [place] [address] PCP - General Family Medicine 03/08/17
[2025-02-19 13:09] VITALS: BP 115/75; PULSE 112; RESP 17; TEMP 36.7; O2SAT 100; BMI 22.2
== END 2025-02-19 13:21 | disposition home or self-care (01) ==
LOC: OBOUT 12:52 → OB 12:53
PROVIDERS: PCP Nurse Practitioner Family; Visit Provider Obstetrics & Gynecology
DX: Z34.83 Encounter for supervision of other normal pregnancy, third trimester (principal); Z3A.33 33 weeks gestation of pregnancy
CPT/HCPCS: 99212

== ENCOUNTER 2025-02-23 12:55 | Outpatient (CLI) | payer OTHER, SELFPAY ==
--- OUTSIDE RECORDS SUMMARY | 2025-02-23 12:58 | XMS_ITS | Clinical Summary ---
Author Organization [facility] Address [address] [place] [address] Care Team Providers Care Space Control Agent Name Role Phone PolloFrancine lovell Adina YE [...] Diagnosed Date Thyroid disease [facility] 08/31/2024 Assessment & Plan (09/01/2024 6:16 AM [...] drink = 0.6 oz pur e alcohol) [facility] Utilities Answer Date Recorded In [...] Brief Depression Severity Measure Score 0 09/28/2022 [facility] - Occupational [...] things needed for daily living? No 07/28/2023 [place] Depression Scale Answer Date Recorded [place] Depression Scale Total 5 09/10/2023 The thought [...] GED or equivalent No 07/28/2023 Preferred Language Guyanese 07/28/2023 PHQ-2 Answer Date Recorded Retired PHQ-9: [...] ve Non-Reacti ve 12/12/2022 1:03 AM EDT [facility] Blood Venipuncture / Unknown 12/11/2022 3:32 PM EDT 12/11/2022 3:37 PM EDT Narrative [facility] - 12/12/2022 1:03 AM EDT Results may be falsely decreased if patient taking Biotin. Shiva Soares MD LAB BLOOD ORDERABLES Final Result [facility]
[address] [place] [address], * Gardnerella vaginalis, Trichomonas vaginalis, Kimmy albicans, DNA - Swab, Vagina (12/11/2022) Swab Vaginal structure / Unknown Shiva Soares MD [facility]OLOGY - [facility]AL [facility]DE [facility] Final Result MEDICAL DIAGNOSTIC LAB [facility] [place] [address] * LIQUID-BASED PAP SMEAR[facility] (VIRY,COR,MAD) (09/28/2022 11:02 AM EDT) [facility] Reference Lab Report [facility] [address] [place] [address] or [phone] Ag Piña M.D., Pro Shop Attendant PATIENT NAME LABORATORY [address] [place] [address] [id number] AGE SEX SSN CLIENT REF # [facility] OF 2000 F [id number] [facility] REQUESTING Lenard ATTENDING M.D. COPY TO[address] [place] [address] DATE COLLECTED DATE RECEIVED DATE REPORTED 09/28/2022 [...] 51, 52, 56, 58, 59, 66, 68 DIRECTOR SYSTEMS: RUIZ JETER (ASCP) CPT CODES: 57999, [id number] 10/01/2022 2:06 PM EDT [facility] ThinPrep Vial Cervix uteri structure / Unknown Collection / Unknown 09/28/2022 11:02 AM EDT 09/28/2022 11:02 AM EDT Francine Abad DO PATHOLOGY/CYTOLOGY ORDERABL ES Final Result [facility]
[address] [place] [address], * SCANNED - PAP SMEAR (11/13/2019) Francine [...] or is breathing): Full Support Care Teams Space Control Agent Relationship Specialty Start Date End Date Franc[place] [address] PCP - General Family Medicine 03/08/17
--- NOTE | 2025-02-23 13:00 | US_ITS ---
PROCEDURE: US OB BIOPHYSICAL PROFILE CLINICAL INDICATION: BPP COMPARISON: US US OB /MATERNAL DETAIL from 11/18/2024 US US OB FOLLOW UP from 01/11/2025 US US OB FOLLOW UP from 01/28/2025 US US OB BIOPHYSICAL PROFILE from 02/09/2025 US US OB BIOPHYSICAL PROFILE from 02/16/2025 FINDINGS: Transabdominal sonographic images of the uterus were obtained. From her established due date she is 34weeks 0 days. The following parameters are obtained: Viable Fetus in the cephalic presentation with an anterior placenta grade 2. The cervix measures 1.97 cm in length. Measurements: heart Rate = 152bpm Amniotic fluid index: 11.73cm, MVP 4.49 cm. Qualitative AFV:2 Breathing movements: 2 Gross Body Movements: 2 Tone: 2 Biophysical profile score: 8 No obvious anomalies evident.Kidneys, profile, stomach, bladder, four-chamber heart, three-vessel cord appear normal. IMPRESSION: 1. Viable fetus in the cephalic presentation with an anterior placenta grade 2. 2. The fluid is within normal limits with an amniotic fluid index 11.73 cm, MVP 4.49 cm. 3. The cervix measures 1.63 cm-1.[address] Rodriguez was notified by the columnist of the foreshortening of the cervix. 4. Biophysical profile is 8/8 with good breathing movement and movement seen. 5. Limited anatomical scan appears normal. Dictated by: Anton White MD 02/24/2025 09:33 Anton White MD in OV 02/24/2025 09:33
== END 2025-02-23 23:59 | disposition home or self-care (01) ==
LOC: RAD 12:55
PROVIDERS: PCP Nurse Practitioner Family; Visit Provider Obstetrics & Gynecology
DX: O26.873 Cervical shortening, third trimester (principal); O47.03 False labor before 37 completed weeks of gestation, third trimester; O09.293 Supervision of pregnancy with other poor reproductive or obstetric history, third trimester; Z3A.34 34 weeks gestation of pregnancy
CPT/HCPCS: 76819